=== PATIENT | female | born 1970 | race Caucasian/White ===

== ENCOUNTER 2018-09-07 07:45 | Emergency (ER) | payer MEDICAID, OTHER ==
[2018-09-07] MEDS ORDERED: Sodium Chloride 0.9% 10 ML Syringe FLUSH PRN (08:15)
[2018-09-07] MEDS ORDERED: Sodium Chloride 0.9% 1,000 ML IV STA (08:15)
[2018-09-07] MEDS ORDERED: HYDROmorphone 1 MG/ML Syringe IVPUSH ONE (08:16)
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
--- NOTE | 2018-09-07 10:11 | US ---
Pelvic ultrasound: Multiple real-time images were obtained transvaginally and transabdominally. Comparison: No previous pelvic imaging. Uterus is anteverted. No myometrial abnormality is seen. Endometrial thickness measures up to 1.2 cm which is felt to be within normal limits. Right ovary shows small follicles. No larger cyst or solid abnormality is seen. Left ovary not seen transvaginally. Left ovary identified on transabdominal scanning and is normal in size. No free fluid is seen. Measurements: Uterus: Length 8.1 cm, AP height 5.2 cm, transverse width 6.9 cm Right ovary: 3.5 x 1.8 x 2.0 cm Left ovary: 3.6 x 2.3 x 2.3 cm Impression: 1. Normal findings as noted above. Diagnostic code #1
--- NOTE | 2018-09-07 12:15 | CR ---
Right wrist: Four views of the right wrist were obtained. Comparison: No prior study. Small calcification off the anterior pisiform bone is seen which is felt to be incidental and old. Joint spaces are preserved. No acute fracture, dislocation or other bony abnormality is seen. Impression: 1. Incidental finding. Nothing acute is seen. Diagnostic code #2
== END 2018-09-07 11:45 | disposition home or self-care (01) ==
LOC: JD.ED 07:45
DX: S63.501A Unspecified sprain of right wrist, initial encounter (principal); N93.8 Other specified abnormal uterine and vaginal bleeding; Z77.22 Contact with and (suspected) exposure to environmental tobacco smoke (acute) (chronic); Z79.899 Other long term (current) drug therapy; X58.XXXA Exposure to other specified factors, initial encounter
CPT/HCPCS: 36415; 73110; 76830; 80053; 84703; 85025; 96361; 96374; 99284; J1170; J7040

== ENCOUNTER 2018-09-09 08:17 | Emergency (ER) | payer MEDICAID, OTHER ==
--- NOTE | 2018-09-09 09:32 | EDM.PDOC ---
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 She states that up until then, she had regular periods, usually lasting 7 days. She stated that she had been seen at the [place] ED in May and started on norethindrone. She reported that it stopped her bleeding up until 16 days ago, when it restarted. She reported pelvic pain that came and went. She denied recent fever, chills, cough, congestion, or chest pain. She reported occasional shortness of breath and generalized weakness. Workup in the ED included a CBC, CMP, and urine test. A pelvic ultrasound was unremarkable. She received IV fluid and IV Dilaudid. The emergency physician contacted Dr. Tom Marcus, who recommended that the patient's norethindrone be increased to 20 mg per day. She was discharged home with a prescription for 10 tablets of [place], and an appointment to follow-up with Dr. Marcus this coming 09/11/2018, at 15:30. The patient now returns to the ED, stating that her vaginal bleeding has not improved, and that it may have worsened. She states that she is passing clots, going through 20+ pads over the past 2 days. She also reports 2 episodes of emesis this morning. She denies urinary symptoms. No recent fever. The patient does not have a PCP. Pelvic Pain Score (Numeric/FACES): 8 - Related Data Allergies Allergy/AdvReac Type Severity Reaction Status Date / Time No Known Allergies Allergy Verified 09/09/18 08:27 Home Meds: Home Meds Hydrocodone/Acetaminophen [Hydrocodon-Acetaminophen 5-325] 1 - 2 each PO Q6HR PRN #10 tablet 09/07/18 [Rx] Iron 65 mg PO DAILY 09/07/18 [History] Norethindrone [Aygestin] 10 mg PO DAILY 09/07/18 [History] Past Medical History Cardiovascular History: Reports: Hypertension (untreated) Musculoskeletal History: Reports: Fracture (right humerus) Endocrine/Metabolic History: Reports: Hypothyroidism (untreated), Obesity/BMI 30 + - Past Surgical History HEENT Surgical History: Reports: Oral Surgery (wisdom teeth extraction), Tonsillectomy GI Surgical History: Reports: Appendectomy Female Surgical History: Reports: Tubal Ligation Neurological Surgical History: Reports: C-Spine (C4-5 ACDF, C5-5 ACDF, Posterior cervical jose) Musculoskeletal Surgical History: Reports: ORIF (right humerus) Social & Family History - Tobacco Use Smoking Status *Q: Never Smoker - Caffeine Use Caffeine Use: Reports: Coffee - Alcohol Use Alcohol Use History: Yes Alcohol Use Frequency: Rarely - Recreational Drug Use Recreational Drug Use: No - Living Situation & Occupation Living situation: Reports: , with Family (Daughter, her ) Occupation: Unemployed ED ROS GENERAL - Review of Systems Review Of Systems: ROS reveals no pertinent complaints other than HPI. ED EXAM, RENAL/ - Physical Exam Exam: See Below Exam Limited By: No Limitations General Appearance: Alert, WD/WN, No Apparent Distress Eye Exam: Bilateral Eye: EOMI, Normal Inspection Ears: Normal External Exam, Hearing Grossly Normal Nose: Normal Inspection Throat/Mouth: Normal Inspection, Normal Lips, Normal Voice, No Airway Compromise Head: Atraumatic, Normocephalic Neck: Normal Inspection, Full Range of Motion Respiratory/Chest: No Respiratory Distress, Lungs Clear, Normal Breath Sounds, No Accessory Muscle Use Cardiovascular: Normal Peripheral Pulses, Regular Rate, Rhythm, No Gallop, No JVD, No Murmur, No Rub GI/Abdominal: Normal Bowel Sounds, Soft, No Organomegaly, No Distention, No Abnormal Bruit, No Mass, Tender (Lower abdomen only. Nontender elsewhere.), Other (Obese) (Female) Exam: Deferred Back Exam: Normal Inspection, Full Range of Motion, NT Extremities: Normal Inspection, Normal Range of Motion, Normal Capillary Refill , Other (2+ pretibial edema bilaterally) Neurological: Alert, Oriented, Normal Cognition, No Motor/Sensory Deficits Psychiatric: Normal Affect Skin Exam: Warm, Dry, Intact, Normal Color, No Rash Course - Vital Signs Last Recorded V/S: Last Vital Signs Temp 36.6 C 09/09/18 08:24 Pulse 88 09/09/18 08:24 Resp 16 09/09/18 08:24 BP 158/96 H 09/09/18 08:24 Pulse Ox 93 L 09/09/18 08:24 Orthostatic Blood Pressure [ 162/95 Standing] Orthostatic Blood Pressure [ 157/92 Sitting] Orthostatic Blood Pressure [ 152/89 Supine] - Orders/Labs/Meds Orders: Active Orders 24 hr Category Date Time Status Orthostatic Vital Signs [RC] STAT Care 09/09/18 08:39 Active Labs: Laboratory Tests 09/09/18 Range/Units 08:55 WBC 8.79 (3.98-10.04) K/mm3 RBC 3.99 (3.98-5.22) M/mm3 Hgb 10.7 L (11.2-15.7) gm/L Hct 33.8 L (34.1-44.9) % MCV 84.7 (79.4-94.8) fl MCH 26.8 (25.6-32.2) pg MCHC 31.7 L (32.2-35.5) g/dl RDW Std Deviation 53.7 H (36.4-46.3) fL Plt Count 433 H (182-369) K/mm3 MPV 7.7 L (9.4-12.3) fl Neutrophils % (Manual) 67 H (40-60) % Band Neutrophils % 0 (0-10) % Lymphocytes % (Manual) 20 (20-40) % Atypical Lymphs % 0 % Monocytes % (Manual) 11 H (2-10) % Eosinophils % (Manual) 2 (0.7-5.8) % Basophils % (Manual) 0 L (0.1-1.2) Platelet Estimate Adequate Poikilocytosis 1+ slight Anisocytosis 1+ slight RBC Morph Comment Not Reportable - Re-Assessments/Exams Free Text/Narrative Re-Assessment/Exam: 09/09/18 09:26 The patient's H/H has returned at 10.7/33.8, with platelets 433. Her H/H was 11.1/35.2 on 09/07/2018. The patient is not orthostatic. Case discussed with Dr. Tom Marcus at 09:24. He recommended the patient continue to take norethindrone 20 mg daily, then follow-up with him at her previously scheduled appointment this coming 09/11/2018, at 15:30. 09/09/18 09:32 The above was discussed with the patient. I will discharge her home. Departure - Departure Time of Disposition: 09:32 Disposition: Home, Self-Care 01 Condition: Fair Clinical Impression: Dysfunctional uterine bleeding - Discharge Information *PRESCRIPTION DRUG MONITORING PROGRAM REVIEWED*: Not Applicable *COPY OF PRESCRIPTION DRUG MONITORING REPORT IN PATIENT YANIV: Not Applicable Instructions: Dysfunctional Uterine Bleeding Referrals: Tom Marcus MD [Physician] - Forms: ED Department Discharge Additional Instructions: You were seen in the emergency room for continued vaginal bleeding. Workup in the ER included a CBC and positional blood pressure checked. Your hemoglobin/hematocrit were within normal limits, and your blood pressure maintained itself between lying and standing, indicating that you are not intravascularly depleted. Your case was discussed with the MOP MACHINE OPERATOR Dr. Tom Marcus. He recommended that you continue to take the norethindrone 20 mg per day, and then follow-up with him at your previously scheduled appointment this coming 09/11/2018, at 3: 30 PM. If any other problems, please do not hesitate to return to the ER. - My Orders Last 24 Hours: My Active Orders 09/09/18 08:39 Orthostatic Vital Signs [RC] STAT - Assessment/Plan Last 24 Hours: My Active Orders 09/09/18 08:39 Orthostatic Vital Signs [RC] STAT
== END 2018-09-09 09:40 | disposition home or self-care (01) ==
LOC: JD.ED 08:17
DX: N93.8 Other specified abnormal uterine and vaginal bleeding (principal); I10 Essential (primary) hypertension; E66.9 Obesity, unspecified
CPT/HCPCS: 36415; 85007; 85027; 99283; 99284

== ENCOUNTER 2018-09-15 13:20 | Emergency (ER) | payer OTHER ==
[2018-09-15] MEDS ORDERED: Ondansetron 4 MG/2 ML SDV IVPUSH ONE (13:49)
[2018-09-15] MEDS ORDERED: Sodium Chloride 0.9% 10 ML Syringe FLUSH PRN ×2 (13:49→15:00)
[2018-09-15] MEDS ORDERED: Sodium Chloride 0.9% 1,000 ML IV STA (13:49)
[2018-09-15] MEDS ORDERED: HYDROmorphone 1 MG/ML Syringe IVPUSH ONE ×2 (13:51→16:18)
--- NOTE | 2018-09-15 14:34 | EDM.PDOC ---
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 The vaginal bleeding has been an ongoing problems since May. She went to the ER in [place] in May and she was put on some norethindrone daily. Toward the end of July she started bleeding again and she did that for about 16 days strait. She saw me in the ER last week. I did a pelvic US that did not show any problems. Labs looked good and test was negative. I called Dr Marcus the SENIOR FACILITIES MANAGER systems integration manager and he had me increase her norethindrone and see him in follow up. She came back to the ER 2 days later with the same complaint. She then did follow up with Dr Marcus and he did a biopsy. I was able to look at the biopsy results and there was nothing abnormal seen. He made some changes to her medications and she still continues to bleed. She has clots at times. She has lower abdominal pain and pelvic pain. The pain also radiates to her back. She has generalized weakness and she feels lightheaded nieto she stands up. She says the pelvic pain and abdominal pain are worse. Onset: Gradual Duration: Week(s): Location: Reports: Abdomen, Pelvis Quality: Reports: Sharp Severity: Severe Improves with: Reports: None Worsens with: Reports: None Associated Symptoms: Reports: Nausea/Vomiting. Denies: Chest Pain, Cough, Fever /Chills, Headaches, Shortness of Breath Lower Abdominal Pain Score (Numeric/FACES): 10 - Related Data Allergies Allergy/AdvReac Type Severity Reaction Status Date / Time No Known Allergies Allergy Verified 09/15/18 13:24 Home Meds: Home Meds Hydrocodone/Acetaminophen [Hydrocodon-Acetaminophen 5-325] 1 - 2 each PO Q6HR PRN #10 tablet 09/07/18 [Rx] Iron 65 mg PO DAILY 09/07/18 [History] Norethindrone [Aygestin] 10 mg PO DAILY 09/07/18 [History] Past Medical History Cardiovascular History: Reports: Hypertension SENIOR FACILITIES MANAGER History: Reports: Other (See Below) Other SENIOR FACILITIES MANAGER History: endometrial biopsy Musculoskeletal History: Reports: Fracture Endocrine/Metabolic History: Reports: Hypothyroidism, Obesity/BMI 30+ - Past Surgical History HEENT Surgical History: Reports: Oral Surgery, Tonsillectomy GI Surgical History: Reports: Appendectomy Female Surgical History: Reports: Tubal Ligation Neurological Surgical History: Reports: C-Spine Musculoskeletal Surgical History: Reports: ORIF Social & Family History - Tobacco Use Smoking Status *Q: Never Smoker Second Hand Smoke Exposure: Yes - Caffeine Use Caffeine Use: Reports: Coffee - Recreational Drug Use Recreational Drug Use: No - Living Situation & Occupation Living situation: Reports: , with Family (Daughter, her ) Occupation: Unemployed ED ROS GENERAL - Review of Systems Review Of Systems: See Below Constitutional: Reports: No Symptoms HEENT: Reports: No Symptoms Respiratory: Reports: No Symptoms Cardiovascular: Reports: No Symptoms Endocrine: Reports: No Symptoms GI/Abdominal: Reports: Abdominal Pain, Nausea, Vomiting : Reports: Other (pelvic pain) Musculoskeletal: Reports: Back Pain ED EXAM, RENAL/ - Physical Exam Exam: See Below Exam Limited By: No Limitations General Appearance: Alert, No Apparent Distress Ears: Normal External Exam Nose: Normal Inspection Head: Atraumatic, Normocephalic Neck: Normal Inspection Respiratory/Chest: No Respiratory Distress, Lungs Clear, Normal Breath Sounds Cardiovascular: Regular Rate, Rhythm, No Edema, No Murmur GI/Abdominal: Soft, No Organomegaly, Tender (Moderate tenderness to the lower abdomen) Back Exam: Normal Inspection Extremities: Normal Inspection Neurological: Alert, Oriented, No Motor/Sensory Deficits Course - Vital Signs Last Recorded V/S: Last Vital Signs Temp 97.7 F 09/15/18 13:24 Pulse 88 09/15/18 13:24 Resp BP 171/88 H 09/15/18 13:24 Pulse Ox 98 09/15/18 13:24 - Orders/Labs/Meds Orders: Active Orders 24 hr Category Date Time Status Peripheral IV Care [RC] . DIRECTED Care 09/15/18 13:50 Active Sodium Chloride 0.9% [Saline Flush] Med 09/15/18 13:49 Active 10 ml FLUSH ASDIRECTED PRN Sodium Chloride 0.9% [Saline Flush] Med 09/15/18 15:00 Active 10 ml FLUSH ONETIME PRN ED Antiemetic Medication Reflex [OM.PC] Stat Oth 09/15/18 13:50 Ordered Peripheral IV Insertion Adult [OM.PC] Stat Oth 09/15/18 13:49 Ordered Medication Orders Sodium Chloride (Saline Flush) 10 ml FLUSH ASDIRECTED PRN PRN Reason: Keep Vein Open Last Admin: 09/15/18 14:05 Dose: 10 ml Sodium Chloride (Saline Flush) 10 ml FLUSH ONETIME PRN PRN Reason: IV FLUSH Last Admin: 09/15/18 15:31 Dose: 10 ml Labs: Laboratory Tests 09/15/18 09/15/18 Range/Units 13:40 13:40 WBC 7.75 (3.98-10.04) K/mm3 RBC 3.84 L (3.98-5.22) M/mm3 Hgb 10.4 L (11.2-15.7) gm/L Hct 33.1 L (34.1-44.9) % MCV 86.2 (79.4-94.8) fl MCH 27.1 (25.6-32.2) pg MCHC 31.4 L (32.2-35.5) g/dl RDW Std Deviation 54.9 H (36.4-46.3) fL Plt Count 369 (182-369) K/mm3 MPV 8.1 L (9.4-12.3) fl Neut % (Auto) 51.8 (34.0-71.1) % Lymph % (Auto) 26.8 (19.3-51.7) % [place] % (Auto) 11.4 (4.7-12.5) % Eos % (Auto) 8.9 H (0.7-5.8) Baso % (Auto) 0.5 (0.1-1.2) % Neut # (Auto) 4.01 (1.56-6.13) K/mm3 Lymph # (Auto) 2.08 (1.18-3.74) K/mm3 [place] # (Auto) 0.88 H (0.24-0.36) K/mm3 Eos # (Auto) 0.69 H (0.04-0.36) K/mm3 Baso # (Auto) 0.04 (0.01-0.08) K/mm3 Sodium 136 (136-145) mEq/L Potassium 3.4 L (3.5-5.1) mEq/L Chloride 102 (98-107) mEq/L Carbon Dioxide 25 (21-32) mEq/L Anion Gap 12.4 (5-15) BUN 10 (7-18) mg/dL Creatinine 1.0 (0.55-1.02) mg/dL Est Cr Clr Drug Dosing 66.90 mL/min Estimated GFR (MDRD) 59 (>60) mL/min BUN/Creatinine Ratio 10.0 L (14-18) Glucose 246 H (74-106) mg/dL Calcium 8.7 (8.5-10.1) mg/dL Total Bilirubin 0.4 (0.2-1.0) mg/dL AST 11 L (15-37) U/L ALT 17 (14-59) U/L Alkaline Phosphatase 82 (46-116) U/L Total Protein 7.3 (6.4-8.2) g/dl Albumin 3.3 L (3.4-5.0) g/dl Globulin 4.0 gm/dL Albumin/Globulin Ratio 0.8 L (1-2) Meds: Medications Generic Name Dose Route Start Last Admin Trade Name Christianne PRN Reason Stop Dose Admin Sodium Chloride 10 ml 09/15/18 13:49 09/15/18 14:05 Saline Flush FLUSH 10 ml ASDIRECTED PRN Administration Keep Vein Open Sodium Chloride 10 ml 09/15/18 15:00 09/15/18 15:31 Saline Flush FLUSH 10 ml ONETIME PRN Administration IV FLUSH Discontinued Medications Generic Name Dose Route Start Last Admin Trade Name Freq PRN Reason Stop Dose Admin Diatrizoate Meglum/Diatrizoate Sod 120 ml 09/15/18 15:00 09/15/18 15:31 Gastrografin 37% PO 09/15/18 15:01 90 ml ONETIME ONE Administration Hydromorphone HCl 1 mg 09/15/18 13:51 09/15/18 14:03 Dilaudid IVPUSH 09/15/18 13:52 1 mg ONETIME ONE Administration Hydromorphone HCl 0.5 mg 09/15/18 16:18 09/15/18 16:21 Dilaudid IVPUSH 09/15/18 16:19 0.5 mg ONETIME ONE Administration Sodium Chloride 1,000 mls @ 1,000 mls/hr 09/15/18 13:49 09/15/18 14:01 Normal Saline IV 09/15/18 14:48 1,000 mls/hr .BOLUS STA Administration Iopamidol 100 ml 09/15/18 15:00 09/15/18 15:31 Isovue-370 (76%) IV 09/15/18 15:01 100 ml ONETIME ONE Administration Ketorolac Tromethamine 30 mg 09/15/18 15:55 09/15/18 16:01 Toradol IVPUSH 09/15/18 15:56 30 mg ONETIME ONE Administration Ondansetron HCl 4 mg 09/15/18 13:49 09/15/18 14:02 Zofran IVPUSH 09/15/18 13:50 4 mg ONETIME ONE Administration - Re-Assessments/Exams Free Text/Narrative Re-Assessment/Exam: 09/15/18 14:41 I ordered an IV NS 1L bolus, zofran 4mg IV, dilaudid 1mg IV, labs, and a CT of her abdomen and pelvis. 09/15/18 17:36 Her Hgb is a little low at 10.4. She was 10.7 a few days ago. Her K was a little low at 3.3. Her glucose was elevated at 246. Her CT shows nothing acute. She still has pain so I tried toradol but that did not help and then I gave dilaudid. That did help. She is tired of this and would like something done. Dr Marcus did talk about options such as hysterectomy but he needed the biopsy first. That is back in [facility] and that looked good. I called Dr Rodríguez and she came to see the patient. She reassured her that she is on the right medications. The patient remembered what she is on exactly and that at this point there is not an indication to do a D & C or hysterectomy but that a hysterectomy may be done later as an outpatient. The patient has an appointment on Monday with her primary care doctor and then on Monday with Dr Marcus. I will discharge her home. Departure - Departure Time of Disposition: 17:45 Disposition: Home, Self-Care 01 Condition: Good Clinical Impression: DUB (dysfunctional uterine bleeding) - Discharge Information *PRESCRIPTION DRUG MONITORING PROGRAM REVIEWED*: Not Applicable *COPY OF PRESCRIPTION DRUG MONITORING REPORT IN PATIENT YANIV: Not Applicable Referrals: PCP,Unknown [Primary Care Provider] - Tom Marcus MD [Physician] - 1 Week Forms: ED Department Discharge Additional Instructions: Take the medication as prescribed. Drink plenty of fluids. Take ibuprofen for the pain every 6 hours. Follow up with your doctor and Dr Marcus. Please return if you are worse. - My Orders Last 24 Hours: My Active Orders 09/15/18 13:49 Sodium Chloride 0.9% [Saline Flush] 10 ml FLUSH ASDIRECTED PRN Peripheral IV Insertion Adult [OM.PC] Stat 09/15/18 13:50 Peripheral IV Care [RC] . DIRECTED ED Antiemetic Medication Reflex [OM.PC] Stat 09/15/18 15:00 Sodium Chloride 0.9% [Saline Flush] 10 ml FLUSH ONETIME PRN - Assessment/Plan Last 24 Hours: My Active Orders 09/15/18 13:49 Sodium Chloride 0.9% [Saline Flush] 10 ml FLUSH ASDIRECTED PRN Peripheral IV Insertion Adult [OM.PC] Stat 09/15/18 13:50 Peripheral IV Care [RC] . DIRECTED ED Antiemetic Medication Reflex [OM.PC] Stat 09/15/18 15:00 Sodium Chloride 0.9% [Saline Flush] 10 ml FLUSH ONETIME PRN
[2018-09-15] MEDS ORDERED: Diatrizoate Meglumine/Diatrizoate Sodium 37% 120 ML Bottle PO ONE (15:00)
[2018-09-15] MEDS ORDERED: Iopamidol 755 Mg/ML 200 ML Bottle IV ONE (15:00)
[2018-09-15] MEDS ORDERED: Ketorolac 30 MG/ML SDV IVPUSH ONE (15:55)
--- NOTE | 2018-09-15 15:56 | CT ---
CT abdomen and pelvis Technique: Multiple axial sections were obtained from above the dome of the diaphragm inferiorly through the pubic symphysis. Intravenous and oral contrast was utilized. Delayed images were obtained through the bladder. Comparison: Prior pelvic ultrasound study of 09/07/18 is available. Findings: Small portion of the visualized lung bases show nothing acute. Liver contains no focal abnormality. Gallbladder contains no calcified gallstones. Spleen measures at the upper limits of normal at 13.0 cm. Left adrenal gland shows a nodule measuring about 1.5 cm in size. This is nonspecific but most likely is due to a small adrenal adenoma. Kidneys show symmetric contrast enhancement. Small cyst is noted within the mid to lower right kidney measuring approximately 8 mm in size. Kidneys otherwise appear within normal limits. Aorta shows atherosclerotic calcification without aneurysm. Atherosclerotic calcification continues into the iliac vessels. No retroperitoneal adenopathy is seen. No mesenteric abnormalities are seen. Surgical material is seen next to the cecum most likely representing previous appendectomy as the appendix is not visualized. No bowel wall thickening is seen. No inflammatory change or free fluid is seen. Delayed images shows contrast within the distal ureters and bladder. Bone window settings were reviewed which appears within normal limits for the patient's age. Impression: 1. Findings which are felt to be incidental. Nothing acute is appreciated on CT study of the abdomen and pelvis. Diagnostic code #2
--- NOTE | 2018-09-15 17:24 | PCM.CONS ---
H&P History of Present Illness - General Date of Service: 09/15/18 Source of Information: Patient History Limitations: Reports: No Limitations - History of Present Illness Initial Comments - Free Text/Narative: 48 year old female who presents via ambulance with continued menorrhagia. She repots that she has had very heavy bleeding since May of 2018. She was seen in the ER in [place] around that time and started on OCPs and then northindrone for this. She felt the bleeding improved somewhat with that but she still has had times with very heavy bleeding. She then presented last week for menorrhagia to the ER and her northindrone was increased. On Monday she saw Dr. Marcus in clinic and had an endometrial biopsy. She was changed to 10 bid of Provera at that time. These results are back today and are benign. She called with continued bleeding and her provera was increased to 20 bid of Provera. Today she got a bit tired of the bleeding and was having increased cramping with it and felt she had a fever so presented via ambulance for evaluation. ER eval has been benign. She is afebrile. 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 (See Below) Other OB/BYN History: endometrial biopsy Musculoskeletal History: Reports: Fracture Endocrine/Metabolic History: Reports: Hypothyroidism, Obesity/BMI 30+ - Past Surgical History HEENT Surgical History: Reports: Oral Surgery, Tonsillectomy GI Surgical History: Reports: Appendectomy Female Surgical History: Reports: Tubal Ligation Neurological Surgical History: Reports: C-Spine Musculoskeletal Surgical History: Reports: ORIF Social & Family History - Tobacco Use Smoking Status *Q: Never Smoker Second Hand Smoke Exposure: Yes - Caffeine Use Caffeine Use: Reports: Coffee - Recreational Drug Use Recreational Drug Use: No - Living Situation & Occupation Living situation: Reports: , with Family (Daughter, her ) Occupation: Unemployed H&P Review of Systems - Review of Systems: Review Of Systems: See Below General: Reports: No Symptoms HEENT: Reports: No Symptoms Pulmonary: Reports: No Symptoms Cardiovascular: Reports: No Symptoms Gastrointestinal: Reports: No Symptoms Genitourinary: Reports: Other (see hpi) Musculoskeletal: Reports: No Symptoms Skin: Reports: No Symptoms Psychiatric: Reports: No Symptoms Neurological: Reports: No Symptoms Hematologic/Lymphatic: Reports: No Symptoms Immunologic: Reports: No Symptoms Exam - Exam Exam: See Below - Vital Signs Vital Signs: Last Vital Signs Temp 36.5 C 09/15/18 13:24 Pulse 88 09/15/18 13:24 Resp BP 171/88 H 09/15/18 13:24 Pulse Ox 98 09/15/18 13:24 Weight: 99.79 kg - Exam General: Alert, Oriented, 4 HEENT: PERRLA, Hearing Intact, Mucosa Moist & [place], Nares Patent, Normal Nasal Septum, Posterior Pharynx Clear, Conjunctiva Clear, EOMI, EACs Clear, TMs Clear Neck: Supple, Trachea Midline, 2 Lungs: Clear to Auscultation, Normal Respiratory Effort Cardiovascular: Regular Rate, Regular Rhythm GI/Abdominal Exam: Normal Bowel Sounds, Soft, Non-Tender, No Organomegaly, No Distention, Other (obese) (Female) Exam: Normal External Exam, Vaginal Bleeding (actually fairly minimal, scant blood on pad, few small clots) Rectal (Female) Exam: Normal Exam, Normal Rectal Tone Back Exam: Normal Inspection, Full Range of Motion, NT Extremities: Normal Inspection, Normal Range of Motion, Non-Tender, No Pedal Edema, Normal Capillary Refill Skin: Warm, Dry, Intact Neurological: Cranial Nerves Intact, Reflexes Equal Bilateral Neuro Extensive - Mental Status: Alert, Oriented x3, Normal Mood/Affect, Normal Cognition Neuro Extensive - Motor, Sensory, Reflexes: CN II-XII Intact, Normal Gait, Normal Reflexes Psychiatric: Alert, Normal Affect, Normal Mood - Patient Data Lab Results Last 24 hrs: Laboratory Results - last 24 hr 09/15/18 09/15/18 Range/Units 13:40 13:40 WBC 7.75 (3.98-10.04) K/mm3 RBC 3.84 L (3.98-5.22) M/mm3 Hgb 10.4 L (11.2-15.7) gm/L Hct 33.1 L (34.1-44.9) % MCV 86.2 (79.4-94.8) fl MCH 27.1 (25.6-32.2) pg MCHC 31.4 L (32.2-35.5) g/dl RDW Std Deviation 54.9 H (36.4-46.3) fL Plt Count 369 (182-369) K/mm3 MPV 8.1 L (9.4-12.3) fl Neut % (Auto) 51.8 (34.0-71.1) % Lymph % (Auto) 26.8 (19.3-51.7) % [place] % (Auto) 11.4 (4.7-12.5) % Eos % (Auto) 8.9 H (0.7-5.8) Baso % (Auto) 0.5 (0.1-1.2) % Neut # (Auto) 4.01 (1.56-6.13) K/mm3 Lymph # (Auto) 2.08 (1.18-3.74) K/mm3 [place] # (Auto) 0.88 H (0.24-0.36) K/mm3 Eos # (Auto) 0.69 H (0.04-0.36) K/mm3 Baso # (Auto) 0.04 (0.01-0.08) K/mm3 Sodium 136 (136-145) mEq/L Potassium 3.4 L (3.5-5.1) mEq/L Chloride 102 (98-107) mEq/L Carbon Dioxide 25 (21-32) mEq/L Anion Gap 12.4 (5-15) BUN 10 (7-18) mg/dL Creatinine 1.0 (0.55-1.02) mg/dL Est Cr Clr Drug Dosing 66.90 mL/min Estimated GFR (MDRD) 59 (>60) mL/min BUN/Creatinine Ratio 10.0 L (14-18) Glucose 246 H (74-106) mg/dL Calcium 8.7 (8.5-10.1) mg/dL Total Bilirubin 0.4 (0.2-1.0) mg/dL AST 11 L (15-37) U/L ALT 17 (14-59) U/L Alkaline Phosphatase 82 (46-116) U/L Total Protein 7.3 (6.4-8.2) g/dl Albumin 3.3 L (3.4-5.0) g/dl Globulin 4.0 gm/dL Albumin/Globulin Ratio 0.8 L (1-2) Result Diagrams: 09/15/18 13:40 09/15/18 13:40 Consult PN Assessment/Plan Procedures: Procedures BL SMEAR W/DIFF WBC COUNT (09/09/18) CHORIONIC GONADOTROPIN ASSAY (09/07/18) COMPLETE CBC AUTOMATED (09/09/18) COMPLETE CBC W/AUTO DIFF WBC (09/07/18) COMPREHEN METABOLIC PANEL (09/07/18) EMERGENCY DEPT VISIT (09/09/18) HYDRATE IV INFUSION ADD-ON (09/07/18) ROUTINE VENIPUNCTURE (09/09/18) THER/PROPH/DIAG INJ IV PUSH (09/07/18) TRANSVAGINAL US NON-OB (09/07/18) X-RAY EXAM OF WRIST (09/07/18) Problem List Initiated/Reviewed/Updated: Yes Plan: 48 year old female with dysfunctional perimenopausal bleeding that subjectively has not improved. Objectively on exam bleeding is reasonable with her pad not saturated in the time she has been here and her Hgb has stayed stable. She has followup with her PCP on Monday and Dr Marcus on Monday. Will continue medication.
== END 2018-09-15 18:04 | disposition home or self-care (01) ==
LOC: JD.ED 13:20
DX: N93.8 Other specified abnormal uterine and vaginal bleeding (principal); I10 Essential (primary) hypertension; Z77.22 Contact with and (suspected) exposure to environmental tobacco smoke (acute) (chronic)
CPT/HCPCS: 36415; 74177; 80053; 85025; 96361; 96374; 96375; 96376; 99284; J1170; J1885; J2405; J7040; Q9963; Q9967

== ENCOUNTER 2018-09-20 05:48 | Emergency (ER) | payer MEDICAID ==
[2018-09-20] MEDS ORDERED: Sodium Chloride 0.9% 1,000 ML IV STA (06:11)
[2018-09-20] MEDS ORDERED: Sodium Chloride 0.9% 10 ML Syringe FLUSH PRN (06:11)
--- NOTE | 2018-09-20 06:30 | EDM.PDOC ---
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 This has been an ongoing problem since May. She was seen then in [place] [facility] and put on norefendrine. She did get a little better. She did not follow up with any VENEER GLUE SPREADER. Her bleeding increased and also her pain toward the end of July. She was seen her a few weeks ago by myself and she had an US that looked good and labs. I set her up to follow up with Dr Marcus. She did see him and he did a biopsy. She came back to the ER [address] Marcus saw her again after the biopsy and they decided to do a hysterectomy. She was scheduled for September 27 but they move her up to tomorrow. She also saw her primary care provider for a preop. She is back here again because this morning she woke up with and passed a big clot and had more bleeding and pain. She also has weakness. She has no fever, chills, cough or chest pain. She does have some shortness of breath. Onset: Gradual Duration: Week(s): Location: Reports: Pelvis Quality: Reports: Sharp Severity: Moderate Improves with: Reports: None Worsens with: Reports: None Associated Symptoms: Reports: Shortness of Breath. 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 GLUE SPREADER History: Reports: Dysfunctional Uterine Bleeding, Other (See Below) Other VENEER GLUE SPREADER History: endometrial biopsy Musculoskeletal History: Reports: Fracture Endocrine/Metabolic History: Reports: Diabetes, Type II, Hypothyroidism, Obesity /BMI 30+ - Past Surgical History HEENT Surgical History: Reports: Oral Surgery, Tonsillectomy GI Surgical History: Reports: Appendectomy Female Surgical History: Reports: Tubal Ligation Neurological Surgical History: Reports: C-Spine Musculoskeletal Surgical History: Reports: ORIF Social & Family History - Tobacco Use Smoking Status *Q: Never Smoker - Caffeine Use Caffeine Use: Reports: None - Recreational Drug Use Recreational Drug Use: No - Living Situation & Occupation Living situation: Reports: , with Family (Daughter, her ) Occupation: Unemployed ED ROS GENERAL - Review of Systems Review Of Systems: See Below Constitutional: Reports: No Symptoms HEENT: Reports: No Symptoms Respiratory: Reports: No Symptoms Cardiovascular: Reports: No Symptoms Endocrine: Reports: No Symptoms GI/Abdominal: Reports: Abdominal Pain. Denies: Nausea, Vomiting : Reports: Other (Pelvic pain) Musculoskeletal: Reports: Back Pain (Low back pain) ED EXAM, RENAL/ - Physical Exam Exam: See Below Exam Limited By: No Limitations General Appearance: Alert, No Apparent Distress Ears: Normal External Exam Nose: Normal Inspection Head: Atraumatic, Normocephalic Neck: Normal Inspection Respiratory/Chest: No Respiratory Distress, Lungs Clear, Normal Breath Sounds Cardiovascular: Regular Rate, Rhythm, No Edema, No Murmur GI/Abdominal: Soft, No Organomegaly, No Mass, Tender (Mild tenderness to the lower abdomen) Back Exam: Other (Mild pain upon palpation to the lower back) Course - Vital Signs Last Recorded V/S: Last Vital Signs Temp 98.3 F 09/20/18 05:53 Pulse 89 09/20/18 05:53 Resp 18 09/20/18 05:53 BP 163/114 H 09/20/18 05:53 Pulse Ox 96 09/20/18 05:53 - Orders/Labs/Meds Orders: Active Orders 24 hr Category Date Time Status EKG Documentation Completion [RC] STAT Care 09/20/18 06:11 Active Peripheral IV Care [RC] . DIRECTED Care 09/20/18 06:12 Active Chest 1V Frontal [CR] Stat Exams 09/20/18 06:11 Taken Sodium Chloride 0.9% [Normal Saline] 1,000 ml Med 09/20/18 06:11 Active IV .BOLUS Sodium Chloride 0.9% [Saline Flush] Med 09/20/18 06:11 Active 10 ml FLUSH ASDIRECTED PRN Peripheral IV Insertion Adult [OM.PC] Stat Oth 09/20/18 06:11 Ordered Medication Orders Sodium Chloride (Normal Saline) 1,000 mls @ 1,000 mls/hr IV .BOLUS STA Stop: 09/20/18 07:10 Last Admin: 09/20/18 06:18 Dose: 1,000 mls/hr Sodium Chloride (Saline Flush) 10 ml FLUSH ASDIRECTED PRN PRN Reason: Keep Vein Open Last Admin: 09/20/18 06:18 Dose: 10 ml Labs: Laboratory Tests 09/20/18 09/20/18 09/20/18 Range/Units 06:00 06:00 06:00 WBC 8.11 (3.98-10.04) K/mm3 RBC 3.85 L (3.98-5.22) M/mm3 Hgb 10.2 L (11.2-15.7) gm/L Hct 32.6 L (34.1-44.9) % MCV 84.7 (79.4-94.8) fl MCH 26.5 (25.6-32.2) pg MCHC 31.3 L (32.2-35.5) g/dl RDW Std Deviation 48.9 H (36.4-46.3) fL Plt Count 428 H (182-369) K/mm3 MPV 7.8 L (9.4-12.3) fl Neut % (Auto) 59.0 (34.0-71.1) % Lymph % (Auto) 22.3 (19.3-51.7) % Wharton % (Auto) 12.0 (4.7-12.5) % Eos % (Auto) 5.8 (0.7-5.8) Baso % (Auto) 0.5 (0.1-1.2) % Neut # (Auto) 4.79 (1.56-6.13) K/mm3 Lymph # (Auto) 1.81 (1.18-3.74) K/mm3 Wharton # (Auto) 0.97 H (0.24-0.36) K/mm3 Eos # (Auto) 0.47 H (0.04-0.36) K/mm3 Baso # (Auto) 0.04 (0.01-0.08) K/mm3 Sodium 136 (136-145) mEq/L Potassium 3.9 (3.5-5.1) mEq/L Chloride 101 (98-107) mEq/L Carbon Dioxide 25 (21-32) mEq/L Anion Gap 13.9 (5-15) BUN 11 (7-18) mg/dL Creatinine 0.8 (0.55-1.02) mg/dL Est Cr Clr Drug Dosing 83.63 mL/min Estimated GFR (MDRD) > 60 (>60) mL/min BUN/Creatinine Ratio 13.8 L (14-18) Glucose 189 H (74-106) mg/dL POC Glucose 207 H (70-105) mg/dL Calcium 8.8 (8.5-10.1) mg/dL Total Bilirubin 0.4 (0.2-1.0) mg/dL AST 12 L (15-37) U/L ALT 19 (14-59) U/L Alkaline Phosphatase 74 (46-116) U/L Troponin I < 0.017 (0.00-0.056) ng/mL Total Protein 7.2 (6.4-8.2) g/dl Albumin 3.2 L (3.4-5.0) g/dl Globulin 4.0 gm/dL Albumin/Globulin Ratio 0.8 L (1-2) Meds: Medications Generic Name Dose Route Start Last Admin Trade Name Freq PRN Reason Stop Dose Admin Sodium Chloride 1,000 mls @ 1,000 mls/hr 09/20/18 06:11 09/20/18 06:18 Normal Saline IV 09/20/18 07:10 1,000 mls/hr .BOLUS STA Administration Sodium Chloride 10 ml 09/20/18 06:11 09/20/18 06:18 Saline Flush FLUSH 10 ml ASDIRECTED PRN Administration Keep Vein Open - Re-Assessments/Exams Free Text/Narrative Re-Assessment/Exam: 09/20/18 06:31 I ordered an IV NS 1L bolus, dilaudid 0.5mg IV, labs, EKG, and CXR. 09/20/18 07:05 Her EKG shows a NSR with some flattened T waves in the lateral leads. Her CXR looks good. Her WBC is normal. Her Hgb has gone up to 10.2. Her glucose is 189. Her troponin is negative. She was seen by Miguelina in our clinic and her TSH was at 20. She did not start her levothyroxine. I will give her a dose today. I will give her something more for the pain and discharge her home. She has surgery scheduled for tomorrow. Departure - Departure Time of Disposition: 07:10 Disposition: Home, Self-Care 01 Condition: Good Clinical Impression: DUB (dysfunctional uterine bleeding) - Discharge Information *PRESCRIPTION DRUG MONITORING PROGRAM REVIEWED*: No *COPY OF PRESCRIPTION DRUG MONITORING REPORT IN PATIENT YANIV: No Forms: ED Department Discharge Additional Instructions: Take your medications as prescribed. Please return in the morning for surgery. - My Orders Last 24 Hours: My Active Orders 09/20/18 06:11 EKG Documentation Completion [RC] STAT Chest 1V Frontal [CR] Stat Sodium Chloride 0.9% [Normal Saline] 1,000 ml IV .BOLUS Sodium Chloride 0.9% [Saline Flush] 10 ml FLUSH ASDIRECTED PRN Peripheral IV Insertion Adult [OM.PC] Stat 09/20/18 06:12 Peripheral IV Care [RC] . DIRECTED - Assessment/Plan Last 24 Hours: My Active Orders 09/20/18 06:11 EKG Documentation Completion [RC] STAT Chest 1V Frontal [CR] Stat Sodium Chloride 0.9% [Normal Saline] 1,000 ml IV .BOLUS Sodium Chloride 0.9% [Saline Flush] 10 ml FLUSH ASDIRECTED PRN Peripheral IV Insertion Adult [OM.PC] Stat 09/20/18 06:12 Peripheral IV Care [RC] . DIRECTED
[2018-09-20] MEDS ORDERED: Levothyroxine 50 MCG Tab PO ONE (07:08)
[2018-09-20] MEDS ORDERED: HYDROmorphone 1 MG/ML Syringe IVPUSH ONE (07:08)
--- NOTE | 2018-09-20 07:42 | CR ---
Chest: Portable view of the chest was obtained. Comparison: No prior chest x-ray. Heart size is within normal limits for portable technique. Slight tortuosity of the thoracic aorta is seen. Lungs are clear. Bony structures are grossly intact. Impression: 1. Nothing acute is appreciated on portable chest x-ray. Diagnostic code #2
== END 2018-09-20 07:28 | disposition home or self-care (01) ==
LOC: JD.ED 05:48
DX: N93.8 Other specified abnormal uterine and vaginal bleeding (principal); E11.9 Type 2 diabetes mellitus without complications; I10 Essential (primary) hypertension; E03.9 Hypothyroidism, unspecified; Z79.899 Other long term (current) drug therapy
CPT/HCPCS: 36415; 71045; 80053; 82962; 84484; 85025; 93005; 96361; 96374; 99284; A9270; J1170; J7040; 93010; 99283

== ENCOUNTER 2018-09-21 06:44 | Day surgery (SDC) | payer MEDICAID, OTHER ==
[2018-09-21] MEDS ORDERED: Sodium Chloride 0.9% 10 ML Syringe FLUSH PRN (07:00)
[2018-09-21] MEDS ORDERED: Lactated Ringers 1,000 ML IV SCH (07:00)
[2018-09-21] MEDS ORDERED: Lidocaine 1%/Sod Bicarbonate in NS 8.4% 1 ML Syringe IDERM PRN (07:00)
[2018-09-21] MEDS ORDERED: Propofol 200 MG/20 ML SDV ONE (07:22)
[2018-09-21] MEDS ORDERED: fentaNYL 100 MCG/2 ML SDV ONE ×2 (07:22→10:53)
[2018-09-21] MEDS ORDERED: Lidocaine 1% 4 ML ONE (07:23)
[2018-09-21] MEDS ORDERED: Dexamethasone 4 MG/ML SDV ONE (07:23)
[2018-09-21] MEDS ORDERED: Ondansetron 4 MG/2 ML SDV ONE (07:23)
[2018-09-21] MEDS ORDERED: Rocuronium 50 MG/5 ML Vial ONE ×2 (07:23→10:19)
[2018-09-21] MEDS ORDERED: Ketorolac 30 MG/ML SDV ONE (07:23)
[2018-09-21] MEDS ORDERED: Midazolam 1 MG/ML 2 ML SDV ONE (07:23)
[2018-09-21] MEDS ORDERED: Bupivacaine 0.5% 30 ML SDV ONE (07:35)
[2018-09-21] MEDS ORDERED: Scopolamine 1.5 MG Transdermal Patch TOP ONE (07:36)
--- NOTE | 2018-09-21 07:42 | PCM.PREANE ---
Preanesthetic Assessment - Procedure Proposed Procedure: laparoscopic assisted vaginal hysterectomy bilateral salphingectomy - Anesthesia/Transfusion/Family Hx Anesthesia History: Prior Anesthesia Without Reaction Family History of Anesthesia Reaction: No Transfusion History: Prior Transfusion Without Reaction Intubation History: Unknown - Review of Systems General: Night Sweats Pulmonary: Shortness of Breath (constant ), Other (KAMARI, wakes up and can't breathe, ) Cardiovascular: Edema (lower extremities ) Gastrointestinal: Abdominal Pain, Nausea Neurological: Headache (migraines 1-2) Other: Reports: Easy Bleeding (per patient ), Easy Bruising, Diabetes, Thyroid Problems, Depression, Anxiety - Physical Assessment NPO Status Date: 09/20/18 NPO Status Time: 23:30 Pulse: 88 O2 Sat by Pulse Oximetry: 97 Respiratory Rate: 16 Blood Pressure: 146/87 Temperature: 37.4 C Height: 1.7 m Weight: 115 kg ASA Class: 3 Mental Status: Alert & Oriented x3 Airway Class: Mallampati = 3 Dentition: Reports: Dentures (upper dentures, partial bottom ) Thyro-Mental Finger Breadths: 3 Mouth Opening Finger Breadths: 3 ROM/Head Extension: Limited/Partial (history of neck fusion) Lungs: Clear to Auscultation, Decreased Breath Sounds (lower lobes) Cardiovascular: Regular Rate, Regular Rhythm - Allergies Allergies/Adverse Reactions: Allergies Allergy/AdvReac Type Severity Reaction Status Date / Time Penicillins Allergy Cannot Verified 09/20/18 13:07 Remember - Blood Blood Available: No - Anesthesia Plan Pre-Op Medication Ordered: Other (zofran ) - Acknowledgements Anesthesia Type Planned: General Anesthesia Pt an Appropriate Candidate for the Planned Anesthesia: Yes Alternatives and Risks of Anesthesia Discussed w Pt/Guardian: Yes Pt/Guardian Understands and Agrees with Anesthesia Plan: Yes PreAnesthesia Questionnaire HEENT History: Reports: Other (See Below) Other HEENT History: TMJ, has dentures Cardiovascular History: Reports: Hypertension Respiratory History: Reports: Sleep Apnea, SOB Genitourinary History: Reports: None, Other (See Below) Other Genitourinary History: endometrial biopsy, vaginal pain 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: Dysfunctional Uterine Bleeding, Other (See Below) Other OB/BYN History: endometrial biopsy Musculoskeletal History: Reports: Fracture, Osteoarthritis Neurological History: Reports: Migraines Psychiatric History: Reports: Anxiety, Depression Endocrine/Metabolic History: Reports: Diabetes, Type II, Hypothyroidism, Obesity /BMI 30+ Hematologic History: Reports: Anemia Immunologic History: Reports: None Oncologic (Cancer) History: Reports: None Dermatologic History: Reports: None - Past Surgical History Head Surgeries/Procedures: Reports: None HEENT Surgical History: Reports: Oral Surgery, Tonsillectomy Cardiovascular Surgical History: Reports: None Respiratory Surgical History: Reports: None GI Surgical History: Reports: Appendectomy Female Surgical History: Reports: Tubal Ligation Endocrine Surgical History: Reports: None Neurological Surgical History: Reports: C-Spine Musculoskeletal Surgical History: Reports: ORIF Other Musculoskeletal Surgeries/Procedures:: neck surgery Oncologic Surgical History: Reports: None Dermatological Surgical History: Reports: None - SUBSTANCE USE Smoking Status *Q: Never Smoker Recreational Drug Use History: No - HOME MEDS Home Medications: Home Meds ARIPiprazole [Abilify] 5 mg PO BID 09/20/18 [History] Hydrocodone/Acetaminophen [Hydrocodon-Acetaminophen 5-325] 1 - 2 tab PO Q6H PRN 09/20/18 [History] Lisinopril 10 mg PO DAILY 09/20/18 [History] medroxyPROGESTERone [Provera] 20 mg PO BID 09/20/18 [History] metFORMIN [Glucophage] 500 mg PO DAILY 09/20/18 [History] traZODone HCl [Trazodone HCl] 50 mg PO BEDTIME 09/20/18 [History] - CURRENT (IN HOUSE) MEDS Current Meds: Current Medications Lactated Ringer's (Ringers, Lactated) 1,000 mls @ 125 mls/hr IV ASDIRECTED JACQUES Stop: 09/21/18 23:00 Lidocaine/Sodium Bicarbonate (Buffered Lidocaine 1% In Ns 8.4%) 0.25 ml IDERM ONETIME PRN PRN Reason: Prior to IV Start Stop: 09/21/18 18:00 Sodium Chloride (Saline Flush) 10 ml FLUSH ASDIRECTED PRN PRN Reason: Keep Vein Open Stop: 09/21/18 18:00 Discontinued Medications Dexamethasone (Dexamethasone) Confirm Administered Dose 4 mg .ROUTE .STK-MED ONE Stop: 09/21/18 07:24 Fentanyl (Sublimaze) Confirm Administered Dose 100 mcg .ROUTE .STK-MED ONE Stop: 09/21/18 07:23 Lidocaine HCl (Xylocaine-Mpf 1%) Confirm Administered Dose 4 mls @ as directed .ROUTE .STK-MED ONE Stop: 09/21/18 07:24 Ketorolac Tromethamine (Toradol) Confirm Administered Dose 30 mg .ROUTE .STK- MED ONE Stop: 09/21/18 07:24 Midazolam HCl (Versed 1 Mg/Ml) Confirm Administered Dose 2 mg .ROUTE .[employer]-MED ONE Stop: 09/21/18 07:24 Ondansetron HCl (Zofran) Confirm Administered Dose 4 mg .ROUTE .STK-MED ONE Stop: 09/21/18 07:24 Propofol (Diprivan 20 Ml) Confirm Administered Dose 400 mg .ROUTE .STK-MED ONE Stop: 09/21/18 07:23 Rocuronium [place] (Zemuron) Confirm Administered Dose 50 mg .ROUTE .[employer]ong[employer]-MED ONE Stop: 09/21/18 07:24
[2018-09-21] MEDS ORDERED: Ondansetron 4 MG/2 ML SDV IVPUSH PRN (07:53)
[2018-09-21] MEDS ORDERED: fentaNYL 100 MCG/2 ML SDV IVPUSH PRN (07:53)
[2018-09-21] MEDS ORDERED: ceFAZolin 1 GM Vial ONE (08:28)
[2018-09-21] MEDS ORDERED: HYDROmorphone 0.5 MG/0.5 ML Syringe ONE ×3 (08:36→10:21)
[2018-09-21] MEDS ORDERED: Phenylephrine/Normal Saline 100 MCG/ML 10 ML Syringe ONE ×2 (08:45→09:36)
[2018-09-21] MEDS ORDERED: Lactated Ringers 1,000 ML ONE (08:53)
[2018-09-21] MEDS: Lidocaine 1% with EPINEPHrine 1:100,000 20 ML MDV ONE ×2 (08:53→09:08)
[2018-09-21] MEDS: Sodium Chloride 0.9% 50 ML SDV ONE ×2 (08:54→09:08)
[2018-09-21] MEDS ORDERED: Ketamine 500 mg/10 ML MDV ONE (09:12)
[2018-09-21] MEDS ORDERED: Neostigmine Methylsulfate 1 MG/ML 5 ML Syringe ONE (09:20)
[2018-09-21] MEDS ORDERED: Glycopyrrolate 0.2 MG/ML SDV ONE (09:20)
[2018-09-21] MEDS ORDERED: diphenhydrAMINE 50 MG/ML SDV ONE (10:49)
--- NOTE | 2018-09-21 11:31 | PCM.POSTAN ---
POST ANESTHESIA ASSESSMENT - MENTAL STATUS Mental Status: Somnolent - VITAL SIGNS Pulse Rate: 77 SaO2: 100 Resp Rate: 13 Blood Pressure: 142/79 Temperature: 36.6 C - RESPIRATORY Respiratory Status: Respiratory Rate WNL, Airway Patent, O2 Saturation Stable - CARDIOVASCULAR CV Status: Pulse Rate WNL, Blood Pressure Stable - GASTROINTESTINAL GI Status: No Symptoms - PAIN Pain Score: 0 - POST OP HYDRATION Hydration Status: Adequate & Stable
[2018-09-21] MEDS ORDERED: Bupivacaine 0.75% 30 ML SDV ONE (11:40)
[2018-09-21] MEDS ORDERED: Lidocaine 1% 0 ML ONE (11:40)
--- NOTE | 2018-09-21 11:40 | PCM.OPNOTE ---
- General Post-Op/Procedure Note Date of Surgery/Procedure: 09/21/18 Operative Procedure(s): Laparoscopic-assisted vaginal hysterectomy with left salpingectomy of remaining fimbriated end of the fallopian tube Findings: Large, boggy uterus weighing 255 g. Surgically absent bilateral fallopian tubes however there was a small remaining portion of the fimbriated end of the left fallopian tube on the left ovary that was removed. Gases were overall normal. Ovaries were overall normal bilaterally. Hemostasis was noted at the end of the case. The visualized portions of the liver were normal. Pre Op Diagnosis: Abnormal uterine bleeding and menorrhagia with irregular cycle Post-Op Diagnosis: Same Anesthesia Technique: General ET Tube Primary Surgeon: Tom Marcus Anesthesia Provider: Susan Pham News Production Assistant: Nurys Tovar Reason News Production Assistant Was Necessary: Patient's safety and reduction of morbidity and mortality Role of News Production Assistant: Laparoscopic skills and portion of the case on her side of the body and uterus. Pathology: Uterus, cervix and left fimbriated end of the fallopian tube Fluid Replacement, Intraop: 2,000 Output, Urine Amount: 50 EBL in mLs: 150 Complications: None Condition: Good Free Text/Narrative:: Intake & Output 09/20/18 09/21/18 09/21/18 22:59 06:59 14:59 Output Total 50 Balance -50 Length of procedure: 130 minutes Procedure in detail: The patient was seen in the preoperative holding area and risks, benefits, indications, and alternatives of the procedure were reviewed with the patient and she desired to proceed with a laparoscopic assisted vaginal hysterectomy, bilateral salpingectomy, possible unilateral or bilateral oophorectomy, possible total abdominal hysterectomy. Consents were reviewed. The patient was taken back to the OR and given general anesthesia with an endotracheal tube which was placed without difficulty. She was placed in dorsal lithotomy position using Yellofin stirrups. She was prepped and draped in normal sterile fashion. A Miranda catheter was placed without difficulty. She was given 2 g of Ancef for antibiotic prophylaxis. Attention was then turned to her umbilicus and it was injected in the inferior portion of the umbilicus with 0.5% Marcaine and a 5 mm stab incision was made with a scalpel and a Veress needle was then inserted through the incision. The gas was turned on, with an opening pressure of 8 mmHg. Pneumoperitoneum was continued until 15 mmHg pressure. A 5 mm trocar was then inserted under direct visualization through the incision without difficulty. A global view of the abdomen was taken and noted to be overall normal. There were no adhesions noted. Attention was then turned to the patient's right lower quadrant where an avascular space on the right lateral abdomen was identified. Local anesthetic was injected and a 5 mm incision was made with a scalpel. A 5 mm trocar was then inserted under direct visualization of the laparoscope. Attention was then turned to the left lower quadrant, where again an avascular portion of the lateral abdominal wall was identified. Local anesthetic was injected and a scalpel was used to make a 5 mm incision. A 5 mm trocar was inserted under direct visualization with the laparoscope. Attention was then turned to the pelvis where the uterus was visualized and noted be normal in appearance with normal appearing left ovary and a small portion of the fimbriated end of the left fallopian tube. The right ovary and adnexa were not well visualized at this time. The atraumatic grasper was then removed from the right lower trocar and a Enseal vessel sealing device was introduced and was used to transect the small portion of remaining fimbriated end of the remaining portion of the left fallopian tube. This was removed without difficulty and sent for pathology with the entire specimen. The Enseal vessel sealing device was then used to grasp the left round ligament and utero-ovarian ligament, cauterized and transected using the device. The left side of the uterus and broad ligament were then transected using the Enseal vessel sealing device until the level of the uterovesical peritoneal reflection. A bladder flap was then developed across the anterior portion of the uterus. This was repeated on the patient's right side. The utero-ovarian ligament was then transected using Enseal vessel sealing device. The round ligament was transected using Enseal vessel sealing device and the broad ligament was transected to the level of the uterovesical peritoneal reflection. The pelvis was then inspected for hemostasis at this time and hemostasis was noted. All instruments were removed from the abdomen. Attention was then turned to the patient's peritoneum where a weighted speculum was placed into the vagina and a Addison retractor was used to visualize the cervix. The cervix was grasped with a double-tooth tenaculum. The cervical reflection point was then injected circumferentially with 0.25% lidocaine with epinephrine. The cervix was then circumferentially incised with a scalpel. The bladder was then dissected off the pubovesical cervical fascia anteriorly with Metzenbaum scissors. The same procedure was performed posteriorly and the posterior cul-de-sac was entered sharply without difficulty using Metzenbaum scissors. At this point, Enseal vessel sealing device was placed over the uterosacral ligaments on the patient's left side. These were cauterized and transected using the device. This was repeated on the patient's right side. Hemostasis was assured. The cardinal ligaments were then clamped on both sides using the Enseal vessel sealing device, cauterized and ligated using the device. The uterine artery on the patient's right side side and the remainder of the broad ligament were then serially clamped with the Enseal device, cauterized, transected and ligated with the Enseal device on both sides. Excellent hemostasis was noted. The cervix and uterus was able to be delivered at this time. The posterior vaginal cuff was closed with running locked sutures of 0 Monocryl. The vaginal cuff was then closed in a horizontal fashion using running locked sutures with 0 Monocryl suture. All instruments were removed from the vagina. Attention was then turned to the abdomen where a laparoscope was inserted and was used to check for hemostasis. Hemostasis was noted at this time. However, there was a portion of the posterior peritoneum that was incorporated into the vaginal cuff suture causing a pulling of the distal rectum and it was felt that the vaginal cuff should be redone. Attention was then turned to the peritoneum and again a weighted speculum was placed in the vagina and the previous suture for the cuff closure was transected and removed. The vaginal cuff was then closed in a horizontal fashion using running locked sutures with 0 Monocryl suture. Attention was then turned to the abdomen where the peritoneum was reinflated and laparoscope was inserted to again check for hemostasis and evaluate the area of concern in the posterior peritoneum. This is inspected and noted to be normal in appearance and was not causing any change in the rectum angle for the distal rectum. The case was complete at this time. The gas was then evacuated from the peritoneum and trocars removed. These were closed using 4-0 Monocryl suture and Dermabond. All instruments were removed. The Miranda catheter was discontinued at this time. The patient was awoken from general anesthesia and taken to the PACU for recovery in stable condition. She will be discharged to home once she is able to meet all postoperative milestones including tolerating small amount of oral intake and liquids, ambulate without difficulty, her pain controlled with oral medications and able to void without difficulty. She will follow-up in the clinic in 2 weeks or earlier as needed. Sponge, lap, needle, and instrument counts were correct x 2. Of note the uterus was weighed and had a total weight of 255 g. Review of images IMG 001: General view of the uterus and left ovary with overall normal appearance. No evidence of fallopian tube on the left side of the uterus. IMG 002: View of the right adnexa and superior portions of the uterus that her overall normal in appearance. Unable to visualize ovary. IMG 003: Inferior edge of the liver was overall normal in appearance IMG 004: Right ovary that is normal in appearance with the vaginal cuff with hemostasis noted. IMG 005: Left ovary and left broad ligament surgical site was hemostatic. Small suspected fibroadenoma noted on the ovary. IMG 006: Vaginal cuff noted to be hemostatic at the end of the case.
[2018-09-21] MEDS ORDERED: Acetaminophen/oxyCODONE 325-5 MG Tab PO PRN (12:10)
[2018-09-21] MEDS ORDERED: Ketorolac 30 MG/ML SDV IVPUSH SCH (16:30)
--- NOTE | 2018-09-22 09:22 | PCM48HPAN ---
Post Anesthesia Note - EVALUATION WITHIN 48HRS OF ANESTHETIC Vital Signs in Normal Range: Yes Patient Participated in Evaluation: No (Discharged ) Respiratory Function Stable: Yes Airway Patent: Yes Cardiovascular Function Stable: Yes Hydration Status Stable: Yes Pain Control Satisfactory: Yes Nausea and Vomiting Control Satisfactory: Yes Mental Status Recovered: Yes - COMMENTS/OBSERVATIONS Free Text/Narrative:: Chart reviewed, no anesthetic complications noted.
== END 2018-09-21 17:40 | disposition home or self-care (01) ==
LOC: JD.SDS 06:44 → JD.OB 13:40 → JD.SDS 17:40
PROVIDERS: ATTEND Obstetrics & Gynecology
DX: N80.0 Endometriosis of uterus (principal); N72 Inflammatory disease of cervix uteri; I10 Essential (primary) hypertension; E11.9 Type 2 diabetes mellitus without complications; E03.9 Hypothyroidism, unspecified; F41.9 Anxiety disorder, unspecified; F32.9 Major depressive disorder, single episode, unspecified; D64.9 Anemia, unspecified; G47.30 Sleep apnea, unspecified; G43.909 Migraine, unspecified, not intractable, without status migrainosus; Z88.0 Allergy status to penicillin; Z79.84 Long term (current) use of oral hypoglycemic drugs; Z79.899 Other long term (current) drug therapy
CPT/HCPCS: 36415; 58552; 81001; 81025; 82962; 86850; 86900; 86901; A9270; J0690; J1100; J1170; J1200; J1885; J2001; J2250; J2370; J2405; J2704; J2710; J3010; J3490; J7120; 00944

== ENCOUNTER 2019-03-28 06:35 | Emergency (ER) | payer MEDICAID ==
[2019-03-28] MEDS ORDERED: Sodium Chloride 0.9% 10 ML Syringe FLUSH PRN (06:56)
[2019-03-28] MEDS ORDERED: Prochlorperazine 10 MG/2 ML SDV IVPUSH ONE (06:56)
[2019-03-28] MEDS ORDERED: diphenhydrAMINE 50 MG/ML SDV IVPUSH ONE (06:57)
[2019-03-28] MEDS ORDERED: Ketorolac 30 MG/ML SDV IVPUSH ONE (06:57)
--- NOTE | 2019-03-28 07:01 | EDM.PDOC ---
ED HPI GENERAL MEDICAL PROBLEM - General Chief Complaint: Headache Stated Complaint: MIGRAINE Time Seen by Provider: 03/28/19 06:51 Source of Information: Reports: Patient History Limitations: Reports: No Limitations - History of Present Illness INITIAL COMMENTS - FREE TEXT/NARRATIVE: The patient presents with a migraine headache since yesterday. She has nausea but no vomiting. She says it has "messed up her vision." She has a history of migraines. She has no numbness or weakness. She has no fever, chills, cough, chest pain or shortness of breath. Onset: Gradual Duration: Day(s): (Yesterday) Location: Reports: Head Quality: Reports: Sharp Severity: Severe Improves with: Reports: None Worsens with: Reports: None Associated Symptoms: Reports: Headaches, Nausea/Vomiting. Denies: Chest Pain, Cough, Fever/Chills, Shortness of Breath Bilateral Headache Pain Score (Numeric/FACES): 10 - Related Data Allergies Allergy/AdvReac Type Severity Reaction Status Date / Time Penicillins Allergy Cannot Verified 03/28/19 06:44 Remember Home Meds: Home Meds ARIPiprazole [Abilify] 5 mg PO BID 09/20/18 [History] Lisinopril 10 mg PO DAILY 09/20/18 [History] metFORMIN [Glucophage] 500 mg PO DAILY 09/20/18 [History] traZODone HCl [Trazodone HCl] 50 mg PO BEDTIME 09/20/18 [History] Docusate Sodium [Colace] 100 mg PO BID #60 capsule 09/21/18 [Rx] Ibuprofen 600 mg PO Q6H PRN #60 tablet 09/21/18 [Rx] Levothyroxine [Synthroid] 50 mcg PO DAILY 09/21/18 [History] Ondansetron [Zofran ODT] 4 mg PO Q4H PRN #30 tab.dis 09/21/18 [Rx] oxyCODONE HCl/Acetaminophen [Percocet 5-325 mg Tablet] 1 - 2 each PO Q6H PRN # 30 tablet 09/21/18 [Rx] Past Medical History HEENT History: Reports: Other (See Below) Other HEENT History: TMJ, has dentures Cardiovascular History: Reports: Hypertension Respiratory History: Reports: Sleep Apnea, SOB Genitourinary History: Reports: None, Other (See Below) Other Genitourinary History: endometrial biopsy, vaginal pain KENO WRITER History: Reports: Dysfunctional Uterine Bleeding, Other (See Below) Other KENO WRITER History: endometrial biopsy Musculoskeletal History: Reports: Fracture Neurological History: Reports: Migraines Psychiatric History: Reports: Anxiety, Depression Endocrine/Metabolic History: Reports: Diabetes, Type II, Hypothyroidism, Obesity /BMI 30+ Hematologic History: Reports: Anemia Immunologic History: Reports: None Oncologic (Cancer) History: Reports: None Dermatologic History: Reports: None - Past Surgical History Head Surgeries/Procedures: Reports: None HEENT Surgical History: Reports: Oral Surgery, Tonsillectomy Cardiovascular Surgical History: Reports: None Respiratory Surgical History: Reports: None GI Surgical History: Reports: Appendectomy Female Surgical History: Reports: Hysterectomy, Tubal Ligation Endocrine Surgical History: Reports: None Neurological Surgical History: Reports: C-Spine Oncologic Surgical History: Reports: None Dermatological Surgical History: Reports: None Social & Family History - Tobacco Use Smoking Status *Q: Never Smoker - Caffeine Use Caffeine Use: Reports: None - Recreational Drug Use Recreational Drug Use: No - Living Situation & Occupation Living situation: Reports: , with Family (Daughter, her ) Occupation: Unemployed ED ROS GENERAL - Review of Systems Review Of Systems: See Below Constitutional: Reports: No Symptoms HEENT: Reports: No Symptoms Respiratory: Reports: No Symptoms Cardiovascular: Reports: No Symptoms Endocrine: Reports: No Symptoms GI/Abdominal: Reports: Nausea. Denies: Abdominal Pain, Vomiting : Reports: No Symptoms Musculoskeletal: Reports: No Symptoms Neurological: Reports: Headache - Physical Exam Exam: See Below Exam Limited By: No Limitations General Appearance: Alert, No Apparent Distress Ears: Normal External Exam Nose: Normal Inspection Head Exam: Atraumatic, Normocephalic Neck: Normal Inspection Respiratory/Chest: No Respiratory Distress, Lungs Clear, Normal Breath Sounds Cardiovascular: Regular Rate, Rhythm, No Edema, No Murmur GI/Abdominal: Soft, Non-Tender, No Organomegaly, No Mass Neuro Exam (Abbreviated): Alert, Oriented, No Motor/Sensory Deficits Course - Vital Signs Last Recorded V/S: Last Vital Signs Temp 98.2 F 03/28/19 06:44 Pulse 113 H 03/28/19 06:44 Resp 17 03/28/19 06:44 BP 154/92 H 03/28/19 06:44 Pulse Ox 94 L 03/28/19 06:44 - Orders/Labs/Meds Orders: Active Orders 24 hr Category Date Time Status Peripheral IV Care [RC] . DIRECTED Care 03/28/19 06:56 Active Sodium Chloride 0.9% [Saline Flush] Med 03/28/19 06:56 Active 10 ml FLUSH ASDIRECTED PRN Peripheral IV Insertion Adult [OM.PC] Routine Oth 03/28/19 06:56 Ordered Medication Orders Sodium Chloride (Saline Flush) 10 ml FLUSH ASDIRECTED PRN PRN Reason: Keep Vein Open Last Admin: 03/28/19 07:15 Dose: 10 ml Meds: Medications Generic Name Dose Route Start Last Admin Trade Name Freq PRN Reason Stop Dose Admin Sodium Chloride 10 ml 03/28/19 06:56 03/28/19 07:15 Saline Flush FLUSH 10 ml ASDIRECTED PRN Administration Keep Vein Open Discontinued Medications Generic Name Dose Route Start Last Admin Trade Name Freq PRN Reason Stop Dose Admin Diphenhydramine HCl 50 mg 03/28/19 06:57 03/28/19 07:15 Benadryl IVPUSH 03/28/19 06:58 50 mg ONETIME ONE Administration Hydromorphone HCl 1 mg 03/28/19 07:57 03/28/19 08:05 Dilaudid IVPUSH 03/28/19 07:58 1 mg ONETIME ONE Administration Ketorolac Tromethamine 30 mg 03/28/19 06:57 03/28/19 07:14 Toradol IVPUSH 03/28/19 06:58 30 mg ONETIME ONE Administration Prochlorperazine Edisylate 10 mg 03/28/19 06:56 03/28/19 07:14 Compazine IVPUSH 03/28/19 06:57 10 mg ONETIME ONE Administration - Re-Assessments/Exams Free Text/Narrative Re-Assessment/Exam: 03/28/19 07:00 I ordered an IV saline lock, compazine 10mg IV, toradol 30mg IV and benadryl 50mg IV. 03/28/19 08:32 She still had pain so I had to give her a total of 1.5mgs more of diluadid. I will discharge her home. Departure - Departure Time of Disposition: 08:35 Disposition: Home, Self-Care 01 Condition: Good Clinical Impression: Migraine - Discharge Information *PRESCRIPTION DRUG MONITORING PROGRAM REVIEWED*: No *COPY OF PRESCRIPTION DRUG MONITORING REPORT IN PATIENT YANIV: No Referrals: Tom Marcus MD [Primary Care Provider] - Forms: ED Department Discharge, ED Return to Work/School Form Additional Instructions: Go home and rest. Take tylenol or motrin for any pain. Please return if you are worse. - My Orders Last 24 Hours: My Active Orders 03/28/19 06:56 Peripheral IV Care [RC] . DIRECTED Sodium Chloride 0.9% [Saline Flush] 10 ml FLUSH ASDIRECTED PRN Peripheral IV Insertion Adult [OM.PC] Routine - Assessment/Plan Last 24 Hours: My Active Orders 03/28/19 06:56 Peripheral IV Care [RC] . DIRECTED Sodium Chloride 0.9% [Saline Flush] 10 ml FLUSH ASDIRECTED PRN Peripheral IV Insertion Adult [OM.PC] Routine
[2019-03-28] MEDS ORDERED: HYDROmorphone 1 MG/ML Syringe IVPUSH ONE (07:57)
[2019-03-28] MEDS ORDERED: HYDROmorphone 0.5 MG/0.5 ML Syringe IVPUSH ONE (08:32)
== END 2019-03-28 08:42 | disposition home or self-care (01) ==
LOC: JD.ED 06:35
DX: G43.909 Migraine, unspecified, not intractable, without status migrainosus (principal); I10 Essential (primary) hypertension; E11.9 Type 2 diabetes mellitus without complications; E03.9 Hypothyroidism, unspecified; E66.9 Obesity, unspecified; F32.9 Major depressive disorder, single episode, unspecified; F41.9 Anxiety disorder, unspecified; Z88.0 Allergy status to penicillin; Z79.899 Other long term (current) drug therapy; Z79.84 Long term (current) use of oral hypoglycemic drugs; Z79.890 Hormone replacement therapy
CPT/HCPCS: 96374; 96375; 99283; J0780; J1170; J1200; J1885; 99284

== ENCOUNTER 2019-06-01 15:07 | Inpatient (IN) | payer MEDICAID ==
[2019-06-01] MEDS ORDERED: fentaNYL 100 MCG/2 ML SDV IVPUSH ONE (15:47)
[2019-06-01] MEDS ORDERED: Metoclopramide 10 MG/2 ML SDV IVPUSH ONE (15:48)
--- NOTE | 2019-06-01 15:53 | EDM.PDOC ---
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 Patient states that she underwent a laparoscopic-assisted vaginal hysterectomy by Dr. Tom Phillips on 21 September of this year. At any bleeding postop. A copy of his operative note says that there was a large boggy uterus weighing 255 g. Surgically absent bilateral fallopian tubes however there was a small remaining portion of the fimbriated end of the left fallopian tube on the left ovary that was also removed. Therefore he did do a partial left salpingectomy but both ovaries were left in. stated that she started to bleed heavily per vagina after wakening about 1510 hrs. today. Denies any recent intercourse or foreign bodies in the vagina. She states by red blood per vagina with pain rating up into her left paracolic gutter into her back. He states she got in the bathtub and the bleeding persisted. He came in wearing a giant maxi pad was soaked with blood and she states she soaked towels at home. She is feeling lightheaded and dizzy. She has no known bleeding diathesis. She's had no solid food today. She did have sips of water en route to the hospital. Onset: Today, Sudden Onset Date: 06/01/19 Onset Time: 15:10 Duration: Minutes: Location: Reports: Other (Heavy bleeding per vagina.) Quality: Reports: Ache, Stabbing (Every 6 hours stabbing pain left lower quadrant of the abdomen rating up towards the left flank.) Severity: Severe Improves with: Reports: None Worsens with: Reports: None Context: Reports: Other (Spontaneous bleeding per vagina). Denies: Activity, Exercise, Lifting, Sick Contact, Trauma Associated Symptoms: Reports: Nausea/Vomiting (Nausea without vomiting) Treatments BUILDING ANALYST/SUPERVISOR: Reports: Other (see below) (None.) Left Lower Pelvic Pain Score (Numeric/FACES): 10 - Related Data Allergies Allergy/AdvReac Type Severity Reaction Status Date / Time Penicillins Allergy Cannot Verified 03/28/19 06:44 Remember Home Meds: Home Meds Lisinopril 10 mg PO DAILY 09/20/18 [History] metFORMIN [Glucophage] 500 mg PO BID 09/20/18 [History] Ibuprofen 600 mg PO Q6H PRN #60 tablet 09/21/18 [Rx] Levothyroxine [Synthroid] 50 mcg PO DAILY 09/21/18 [History] Past Medical History HEENT History: Reports: Other (See Below) Other HEENT History: TMJ, has dentures Cardiovascular History: Reports: Hypertension Respiratory History: Reports: Sleep Apnea, SOB Genitourinary History: Reports: None, Other (See Below) Other Genitourinary History: endometrial biopsy, vaginal pain AIRPLANE PATROLLER History: Reports: Dysfunctional Uterine Bleeding, Other (See Below) Other AIRPLANE PATROLLER History: endometrial biopsy Musculoskeletal History: Reports: Fracture Neurological History: Reports: Migraines Psychiatric History: Reports: Anxiety, Depression Endocrine/Metabolic History: Reports: Diabetes, Type II, Hypothyroidism, Obesity /BMI 30+ Hematologic History: Reports: Anemia Immunologic History: Reports: None Oncologic (Cancer) History: Reports: None Dermatologic History: Reports: None - Past Surgical History Head Surgeries/Procedures: Reports: None HEENT Surgical History: Reports: Oral Surgery, Tonsillectomy Cardiovascular Surgical History: Reports: None Respiratory Surgical History: Reports: None GI Surgical History: Reports: Appendectomy Female Surgical History: Reports: Hysterectomy, Tubal Ligation, Other (See Below) Other Female Surgeries/Procedures: still has ovaries Endocrine Surgical History: Reports: None Neurological Surgical History: Reports: C-Spine Oncologic Surgical History: Reports: None Dermatological Surgical History: Reports: None Social & Family History - Tobacco Use Smoking Status *Q: Never Smoker - Caffeine Use Caffeine Use: Reports: Soda - Recreational Drug Use Recreational Drug Use: No - Living Situation & Occupation Living situation: Reports: , with Family (Daughter, her ) Occupation: Unemployed ED ROS GENERAL - Review of Systems Review Of Systems: See Below Constitutional: Reports: Malaise, Weakness, Fatigue. Denies: Fever, Chills HEENT: Reports: No Symptoms Respiratory: Reports: No Symptoms Cardiovascular: Reports: No Symptoms Endocrine: Reports: Fatigue GI/Abdominal: Reports: No Symptoms : Reports: No Symptoms, Other (Sudden onset of bright red bleeding per vagina within the last hour.) Musculoskeletal: Reports: Joint Pain Skin: Reports: No Symptoms (Arthritis in her hands knees hips and low back) Neurological: Reports: No Symptoms Psychiatric: Reports: No Symptoms Hematologic/Lymphatic: Reports: No Symptoms Immunologic: Reports: No Symptoms ED EXAM, RENAL/ - Physical Exam Exam: See Below Exam Limited By: No Limitations General Appearance: Alert, Mild Distress Eye Exam: Bilateral Eye: Normal Inspection, PERRL Throat/Mouth: Normal Inspection, Normal Lips, Normal Oropharynx Head: Atraumatic, Normocephalic Neck: Normal Inspection, Supple, Non-Tender, Full Range of Motion. No: Lymphadenopathy (L), Lymphadenopathy (R) Respiratory/Chest: Lungs Clear (Mild tachypnea due to anxiety. Respiratory distress 24. O2 sats are 98%.), Normal Breath Sounds, No Accessory Muscle Use, Chest Non-Tender, Respiratory Distress Cardiovascular: Normal Peripheral Pulses, Regular Rate, Rhythm, No Edema, No Gallop, No Murmur, No Rub GI/Abdominal: No Organomegaly, No Distention, No Mass, Guarding, Tender (Tender to palpation left lower quadrant up to the left hemiabdomen.), Abnormal Bowel Sounds (Bowel sounds are absent in all 4 quadrants.). No: Rigid ( There is guarding in this area.), Rebound (Female) Exam: Vaginal Bleeding, Other (Patient is bleeding bright red blood on the arterial like looking blood per vagina on simple inspection of the introitus.). No: Normal External Exam Back Exam: Normal Inspection, Full Range of Motion. No: CVA Tenderness (L), CVA Tenderness (R) Extremities: Normal Inspection, Normal Range of Motion, Non-Tender Neurological: Alert, Oriented, CN II-XII Intact, Normal Cognition Psychiatric: Normal Affect, Normal Mood Skin Exam: Warm, Dry, Intact, Normal Color, No Rash Course - Vital Signs Last Recorded V/S: Last Vital Signs Temp 36.4 C 06/01/19 17:01 Pulse 85 06/01/19 17:01 Resp 18 06/01/19 17:01 BP 147/90 H 06/01/19 17:01 Pulse Ox 97 06/01/19 17:01 - Orders/Labs/Meds Orders: Active Orders 24 hr Category Date Time Status Patient Status [ADT] Routine ADT 06/01/19 17:08 Active Antiembolic Devices [RC] PER UNIT ROUTINE Care 06/01/19 17:10 Active EKG Documentation Completion [RC] STAT Care 06/01/19 15:49 Active Peripheral IV Care [RC] . DIRECTED Care 06/01/19 17:10 Active Verify Patient Consent Obtain [RC] PER UNIT ROUTINE Care 06/01/19 17:10 Active Nothing Per Oral Diet [DIET] Diet 06/01/19 Lunch Active PACKED CELLS [RED BLOOD CELLS LP] [BBK] Stat Lab 06/01/19 15:55 Received TYPE AND SCREEN [BBK] Stat Lab 06/01/19 15:55 Received URINALYSIS W/MICROSCOPIC [UA W/MICROSCOPIC] [URIN] Stat Lab 06/01/19 15:49 Ordered Sodium Chloride 0.9% [Normal Saline] 1,000 ml Med 06/01/19 16:00 Active IV ASDIRECTED Sodium Chloride 0.9% [Saline Flush] Med 06/01/19 17:09 Active 10 ml FLUSH ASDIRECTED PRN ceFAZolin [Ancef] 2 gm Med 06/01/19 17:09 Active Premix Bag 1 bag IV ONETIME Peripheral IV Insertion Adult [OM.PC] Urgent Oth 06/01/19 17:09 Ordered Schedule Procedure [COMM] Urgent Oth 06/01/19 17:05 Ordered Sequential Compression Device [OM.PC] Per Unit Routine Oth 06/01/19 17:10 Ordered Medication Orders Sodium Chloride (Normal Saline) 1,000 mls @ 999 mls/hr IV ASDIRECTED JACQUES Last Admin: 06/01/19 16:15 Dose: 999 mls/hr Cefazolin Sodium/Dextrose 2 gm (/ Premix) 50 mls @ 100 mls/hr IV ONETIME ONE Stop: 06/01/19 17:38 Sodium Chloride (Saline Flush) 10 ml FLUSH ASDIRECTED PRN PRN Reason: Keep Vein Open Labs: Laboratory Tests 06/01/19 06/01/19 06/01/19 Range/Units 15:55 15:55 15:55 WBC 9.38 (3.98-10.04) K/mm3 RBC 4.95 (3.98-5.22) M/mm3 Hgb 14.1 (11.2-15.7) gm/dl Hct 42.6 (34.1-44.9) % MCV 86.1 (79.4-94.8) fl MCH 28.5 (25.6-32.2) pg MCHC 33.1 (32.2-35.5) g/dl RDW Std Deviation 50.0 H (36.4-46.3) fL Plt Count 303 (182-369) K/mm3 MPV 8.2 L (9.4-12.3) fl Neut % (Auto) 61.5 (34.0-71.1) % Lymph % (Auto) 21.4 (19.3-51.7) % [place] % (Auto) 9.5 (4.7-12.5) % Eos % (Auto) 6.6 H (0.7-5.8) Baso % (Auto) 0.6 (0.1-1.2) % Neut # (Auto) 5.76 (1.56-6.13) K/mm3 Lymph # (Auto) 2.01 (1.18-3.74) K/mm3 [place] # (Auto) 0.89 H (0.24-0.36) K/mm3 Eos # (Auto) 0.62 H (0.04-0.36) K/mm3 Baso # (Auto) 0.06 (0.01-0.08) K/mm3 PT 9.9 (9.7-12.0) SECONDS INR < 0.93 APTT 26 (22-31) SECONDS Sodium 136 (136-145) mEq/L Potassium 3.6 (3.5-5.1) mEq/L Chloride 101 (98-107) mEq/L Carbon Dioxide 24 (21-32) mEq/L Anion Gap 14.6 (5-15) BUN 13 (7-18) mg/dL Creatinine 0.9 (0.55-1.02) mg/dL Est Cr Clr Drug Dosing 70.78 mL/min Estimated GFR (MDRD) > 60 (>60) mL/min BUN/Creatinine Ratio 14.4 (14-18) Glucose 141 H (74-106) mg/dL Calcium 9.2 (8.5-10.1) mg/dL Total Bilirubin 0.6 (0.2-1.0) mg/dL AST 13 L (15-37) U/L ALT 25 (14-59) U/L Alkaline Phosphatase 89 (46-116) U/L Total Protein 8.1 (6.4-8.2) g/dl Albumin 3.8 (3.4-5.0) g/dl Globulin 4.3 gm/dL Albumin/Globulin Ratio 0.9 L (1-2) Meds: Medications Generic Name Dose Route Start Last Admin Trade Name Freq PRN Reason Stop Dose Admin Sodium Chloride 1,000 mls @ 999 mls/hr 06/01/19 16:00 06/01/19 16:15 Normal Saline IV 999 mls/hr ASDIRECTED JACQUES Administration Cefazolin Sodium/Dextrose 2 gm 50 mls @ 100 mls/hr 06/01/19 17:09 / Premix IV 06/01/19 17:38 ONETIME ONE Sodium Chloride 10 ml 06/01/19 17:09 Saline Flush FLUSH ASDIRECTED PRN Keep Vein Open Discontinued Medications Generic Name Dose Route Start Last Admin Trade Name Freq PRN Reason Stop Dose Admin Fentanyl 100 mcg 06/01/19 15:47 06/01/19 16:13 Sublimaze IVPUSH 06/01/19 15:48 100 mcg ONETIME ONE Administration Fentanyl Confirm 06/01/19 16:59 Sublimaze Administered 06/01/19 17:00 Dose 100 mcg .ROUTE .STK-MED ONE Lidocaine HCl Confirm 06/01/19 16:59 Xylocaine-Mpf 1% Administered 06/01/19 17:00 Dose 4 mls @ as directed .ROUTE .STK-MED ONE Iopamidol 100 ml 06/01/19 16:14 06/01/19 16:25 Isovue-300 (61%) IVPUSH 06/01/19 16:15 100 ml ONETIME ONE Administration Metoclopramide HCl 10 mg 06/01/19 15:48 06/01/19 16:11 Reglan IVPUSH 06/01/19 15:49 10 mg ONETIME ONE Administration Propofol Confirm 06/01/19 16:59 Diprivan 20 Ml Administered 06/01/19 17:00 Dose 200 mg .ROUTE .STK-MED ONE Rocuronium [place] Confirm 06/01/19 16:59 Zemuron Administered 06/01/19 17:00 Dose 100 mg .ROUTE .STK-MED ONE Sodium Chloride 10 ml 06/01/19 16:14 06/01/19 16:10 Saline Flush FLUSH 06/01/19 16:15 10 ml ONETIME ONE Administration Succinylcholine Chloride Confirm 06/01/19 16:59 Succinylcholine In Ns Pf Administered 06/01/19 17:00 Dose 100 mg .ROUTE .[facility] ONE - Radiology Interpretation Free Text/Narrative:: 49-year-old female presents the ED with sudden onset of severe heavy bright red bleeding per vagina. Patient has had total bowel hysterectomy by a vaginal- assisted laparoscopic surgery by Dr. Santos with 21 of September of this year. Therefore bleeding has to be coming from the vaginal cuff. Clinically she appears to be bleeding into the left hemiabdomen and left paracolic gutter due to the severity of her pain. Bleeding started about a half an hour prior to coming to the ED. It is very heavily having soaked towels and a depends. She is bleeding per vaginal introitus. Therefore I did call [facility] on-call OB/ FREIGHT HUSTLER labs were drawn she will have 2 IV started normal saline at open. Crossmatched for 2 units of packed RBCs. She is nothing by mouth as far as solid foods but has taken some sips of water en route to the hospital. She has not ate since yesterday. Plan will be to take her to CT with IV contrast to see appears a large amount of blood in the abdomen. He denies some form of surgical intervention at this time. - Re-Assessments/Exams Free Text/Narrative Re-Assessment/Exam: 06/01/19 17:20 Labs reveal a normal white count at 9.38. Auto differential 61.5 % neutrophils. Hemoglobin is 14.1 with hematocrit of 42.6. Platelet count 303, 000. PT is 9.9 with an INR of less than 0.93. PTT is 26. Sodium is 136 with a potassium of 3.6. Chloride is 11 with a bicarbonate of 24. Anion gap is 14.6. BUN is 13 with a creatinine of 0.9. Glucose is 141. Calcium is 9.2. Liver function is normal. Total protein 8.1 with an albumin fraction of 3.8. CT of the head and pelvis has been performed with IV contrast only. Findings of prior hysterectomy is appreciated. There is distention of the vagina with mixed density material. This presumably is due to blood. No additional abnormality appreciated within or next to the vaginal cuff. Visualized lung bases show nothing acute. Liver contains no focal abnormality. Spleen appears to be within normal limits. Nodule is seen within the left adrenal gland measuring 1.5 cm. This appears fairly similar to previous exam. Kidneys show symmetric contrast enhancement without hydronephrosis or mass. Small low density finding is seen within the lower right kidney measuring 7 mm in size which is most likely a small cyst. Pancreas is within normal limits. Gallbladder contains no calcified gallstones. Aorta shows atherosclerotic calcification which continues into the iliac vessels. No retroperitoneal adenopathy or mesenteric abnormalities are identified. No pelvic mass or adenopathy noted. No free fluid or inflammatory changes seen. Appendix is not seen with surgical material being seen around the tip of the cecum. No acute bony abnormality seen on bone window settings. Dr. Tovar is here from AIRPL[employer] PATROLLER department and will be taking the patient to surgery for exploration of the reason she is bleeding heavily per vagina. Presumably something is happened at the vaginal cuff with mild dehiscence with arterial bleed. Patient's vitals have remained stable in the ED. Departure - Departure Time of Disposition: 17:23 Disposition: DC/Tfer to Critical Access 66 Condition: Fair Clinical Impression: Vaginal hemorrhage - Discharge Information *PRESCRIPTION DRUG MONITORING PROGRAM REVIEWED*: Not Applicable *COPY OF PRESCRIPTION DRUG MONITORING REPORT IN PATIENT YANIV: Not Applicable - My Orders Last 24 Hours: My Active Orders 06/01/19 15:49 EKG Documentation Completion [RC] STAT URINALYSIS W/MICROSCOPIC [UA W/MICROSCOPIC] [URIN] Stat 06/01/19 15:55 PACKED CELLS [RED BLOOD CELLS LP] [BBK] Stat TYPE AND SCREEN [BBK] Stat 06/01/19 16:00 Sodium Chloride 0.9% [Normal Saline] 1,000 ml IV ASDIRECTED - Assessment/Plan Last 24 Hours: My Active Orders 06/01/19 15:49 EKG Documentation Completion [RC] STAT URINALYSIS W/MICROSCOPIC [UA W/MICROSCOPIC] [URIN] Stat 06/01/19 15:55 PACKED CELLS [RED BLOOD CELLS LP] [BBK] Stat TYPE AND SCREEN [BBK] Stat 06/01/19 16:00 Sodium Chloride 0.9% [Normal Saline] 1,000 ml IV ASDIRECTED
[2019-06-01] MEDS ORDERED: Sodium Chloride 0.9% 1,000 ML IV SCH (16:00)
[2019-06-01] MEDS ORDERED: Iopamidol 612 MG/ML 100 ML Bottle IVPUSH ONE (16:14)
[2019-06-01] MEDS ORDERED: Diatrizoate Meglumine/Diatrizoate Sodium 37% 120 ML Bottle PO ONE (16:14)
[2019-06-01] MEDS ORDERED: Sodium Chloride 0.9% 10 ML Syringe FLUSH ONE (16:14)
--- NOTE | 2019-06-01 16:30 | PCM.CONS ---
H&P History of Present Illness - General Date of Service: 06/01/19 Source of Information: Patient History Limitations: Reports: No Limitations - History of Present Illness Initial Comments - Free Text/Narative: Patient is a 49 y/o woman who is s/p LAV in 08/2018 for heavy bleeding. Had done well after surgery with no issues. States has never been sexually active after surgery. Today woke up out of sleep and noted she was bleeding everywhere in her bed. This was at about 1430. Presented immediately to the ER. Estimates she soaked through several towels on her way here. Feeling some pain in her upper abdomen and weak. No new physical activity in the last few days. No other bowel or bladder concerns. Left Lower Pelvic Pain Score (Numeric/FACES): 10 - Related Data Allergies/Adverse Reactions: Allergies Allergy/AdvReac Type Severity Reaction Status Date / Time Penicillins Allergy Cannot Verified 03/28/19 06:44 Remember Home Medications: Home Meds Lisinopril 10 mg PO DAILY 09/20/18 [History] metFORMIN [Glucophage] 500 mg PO BID 09/20/18 [History] Ibuprofen 600 mg PO Q6H PRN #60 tablet 09/21/18 [Rx] Levothyroxine [Synthroid] 50 mcg PO DAILY 09/21/18 [History] Past Medical History HEENT History: Reports: Other (See Below) Other HEENT History: TMJ, has dentures Cardiovascular History: Reports: Hypertension Respiratory History: Reports: Sleep Apnea 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: , Spontaneous : 2 Para: 1 Musculoskeletal History: Reports: Fracture Neurological History: Reports: Migraines Psychiatric History: Reports: Anxiety, Depression Endocrine/Metabolic History: Reports: Diabetes, Type II, Hypothyroidism, Obesity /BMI 30+ - Past Surgical History HEENT Surgical History: Reports: Oral Surgery, Tonsillectomy GI Surgical History: Reports: Appendectomy Female Surgical History: Reports: Hysterectomy, Tubal Ligation Neurological Surgical History: Reports: Other (See Below) (neck surgery) Social & Family History - Tobacco Use Smoking Status *Q: Never Smoker - Caffeine Use Caffeine Use: Reports: Soda - Recreational Drug Use Recreational Drug Use: No - Living Situation & Occupation Living situation: Reports: , with Family (Daughter, her ) Occupation: Unemployed H&P Review of Systems - Review of Systems: Review Of Systems: See Below General: Reports: Weakness, Fatigue Pulmonary: Reports: No Symptoms Cardiovascular: Reports: No Symptoms Gastrointestinal: Reports: Abdominal Pain Genitourinary: Reports: Other (heavy bleeding ) Musculoskeletal: Reports: No Symptoms Psychiatric: Reports: No Symptoms Neurological: Reports: No Symptoms Exam - Exam Exam: See Below - Vital Signs Vital Signs: Last Vital Signs Temp 36.8 C 06/01/19 15:25 Pulse 100 06/01/19 15:25 Resp 24 H 06/01/19 15:25 BP 170/94 H 06/01/19 15:25 Pulse Ox 98 06/01/19 15:25 Weight: 97.976 kg - Exam General: Alert, Oriented, Cooperative, Mild Distress Lungs: Clear to Auscultation, Normal Respiratory Effort Cardiovascular: Regular Rhythm, Tachycardia GI/Abdominal Exam: Soft, Tender (lower abdomen). No: Guarding, Rebound (Female) Exam: Vaginal Bleeding, Other (Exam limited due to patient anxiety and amount of bleeding) Extremities: Normal Inspection - Patient Data Lab Results Last 24 hrs: Laboratory Results - last 24 hr 06/01/19 Range/Units 15:55 WBC 9.38 (3.98-10.04) K/mm3 RBC 4.95 (3.98-5.22) M/mm3 Hgb 14.1 (11.2-15.7) gm/dl Hct 42.6 (34.1-44.9) % MCV 86.1 (79.4-94.8) fl MCH 28.5 (25.6-32.2) pg MCHC 33.1 (32.2-35.5) g/dl RDW Std Deviation 50.0 H (36.4-46.3) fL Plt Count 303 (182-369) K/mm3 MPV 8.2 L (9.4-12.3) fl Neut % (Auto) 61.5 (34.0-71.1) % Lymph % (Auto) 21.4 (19.3-51.7) % Branch % (Auto) 9.5 (4.7-12.5) % Eos % (Auto) 6.6 H (0.7-5.8) Baso % (Auto) 0.6 (0.1-1.2) % Neut # (Auto) 5.76 (1.56-6.13) K/mm3 Lymph # (Auto) 2.01 (1.18-3.74) K/mm3 Branch # (Auto) 0.89 H (0.24-0.36) K/mm3 Eos # (Auto) 0.62 H (0.04-0.36) K/mm3 Baso # (Auto) 0.06 (0.01-0.08) K/mm3 Result Diagrams: 06/01/19 15:55 06/01/19 15:55 Consult PN Assessment/Plan Procedures: Procedures ASSAY OF IRON (10/29/18) ASSAY OF TRANSFERRIN (10/29/18) ASSAY OF TROPONIN QUANT (09/20/18) ASSAY THYROID STIM HORMONE (04/23/19) BL SMEAR W/DIFF WBC COUNT (09/09/18) BLOOD TYPING SEROLOGIC ABO (09/21/18) BLOOD TYPING SEROLOGIC RH(D) (09/21/18) C-REACTIVE PROTEIN (04/23/19) CHORIONIC GONADOTROPIN ASSAY (09/07/18) CHYLMD TRACH DNA AMP PROBE (04/01/19) COMPLETE CBC AUTOMATED (10/29/18) COMPLETE CBC W/AUTO DIFF WBC (04/23/19) COMPREHEN METABOLIC PANEL (05/03/19) CT ABD & PELV W/CONTRAST (09/15/18) CT HEAD/BRAIN W/O DYE (05/03/19) ELECTROCARDIOGRAM TRACING (09/20/18) EMERGENCY DEPT VISIT (03/28/19) EMERGENCY DEPT VISIT (09/20/18) GLUCOSE BLOOD TEST (09/21/18) GLYCOSYLATED HEMOGLOBIN TEST (04/23/19) HYDRATE IV INFUSION ADD-ON (09/20/18) LAPARO-VAG HYST INCL T/O (09/21/18) METABOLIC PANEL TOTAL CA (10/29/18) N.GONORRHOEAE DNA AMP PROB (04/01/19) RBC ANTIBODY SCREEN (09/21/18) ROUTINE VENIPUNCTURE (05/03/19) SMEAR WET [place] SALINE/INK (04/01/19) THER/PROPH/DIAG INJ IV PUSH (03/28/19) TRANSVAGINAL US NON-OB (09/07/18) TRICHOMONAS ASSAY W/OPTIC (04/01/19) TX/PRO/DX INJ NEW DRUG ADDON (03/28/19) TX/PRO/DX INJ SAME DRUG 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 Presents with acute bleeding. Suspect vaginal cuff dehiscence. Plan EUA in OR, possible vaginal repair vs exploratory laparotomy and abdominal repair. Other surgeries as indicated. patient agrees. Consent signed. Jeri MATA
[2019-06-01] MEDS ORDERED: Succinylcholine/Normal Saline 100 MG/5 ML Syringe ONE (16:59)
[2019-06-01] MEDS ORDERED: fentaNYL 100 MCG/2 ML SDV ONE ×2 (16:59→17:56)
[2019-06-01] MEDS ORDERED: Propofol 200 MG/20 ML SDV ONE (16:59)
[2019-06-01] MEDS ORDERED: Lidocaine 1% 4 ML ONE (16:59)
[2019-06-01] MEDS ORDERED: Rocuronium 100 MG/10 ML MDV ONE (16:59)
--- NOTE | 2019-06-01 17:08 | CT ---
CT abdomen and pelvis Technique: Multiple axial sections were obtained from above the dome of the diaphragm inferiorly through the pubic symphysis. Intravenous contrast was utilized. No oral contrast has been given. Comparison: Previous CT abdomen and pelvis exam of 09/15/18. Findings: Prior hysterectomy is noted. There is distention of the vagina with mixed density material. This presumably is due to blood. No additional abnormality is appreciated within or next to the vaginal cuff. Visualized lung bases show nothing acute. Liver contains no focal abnormality. Spleen appears within normal limits. Nodule is seen within the left adrenal gland measuring 1.5 cm. This appears fairly similar to previous exam. Kidneys show symmetric contrast enhancement without hydronephrosis or mass. Small low density finding is seen within the lower right kidney measuring 7 mm in size which is most likely a small cyst. Pancreas is within normal limits. Gallbladder contains no calcified gallstones. Aorta shows atherosclerotic calcification which continues into the iliac vessels. No retroperitoneal adenopathy or mesenteric abnormalities are seen. No pelvic mass or adenopathy is seen. No free fluid or inflammatory change is seen. Appendix not seen with surgical material being seen around the tip of the cecum. No acute bony abnormality is seen on bone window settings. Very small umbilical hernia seen containing fat. Impression: 1. Distention of the vagina with mixed density material presumably due to blood. No discrete abnormality is seen by CT within the vaginal cuff. Interval hysterectomy from previous CT exam. 2. Other findings believed to be incidental as noted above. Nothing acute is otherwise seen. Diagnostic code #3 This report was dictated in [place] Standard Time
[2019-06-01] MEDS ORDERED: Sodium Chloride 0.9% 10 ML Syringe FLUSH PRN (17:09)
[2019-06-01] MEDS ORDERED: ceFAZolin 2 GM in Premix Bag 1 BAG IV ONE (17:09)
--- NOTE | 2019-06-01 17:39 | PCM.PREANE ---
Preanesthetic Assessment - Procedure Proposed Procedure: Vaginal exam with possible exploratory laparotomy - Anesthesia/Transfusion/Family Hx Anesthesia History: Prior Anesthesia Without Reaction Transfusion History: Prior Transfusion Without Reaction Intubation History: Unknown (Patient states that "she does not know" if she had trouble with intubation. Had prior fusion.) - Review of Systems General: No Symptoms Pulmonary: No Symptoms Cardiovascular: Other (HTN) Gastrointestinal: Abdominal Pain Neurological: No Symptoms Other: Reports: None, Thyroid Problems - Physical Assessment NPO Status Date: 06/01/19 NPO Status Time: 09:00 Vital Signs: Last Vital Signs Temp 36.4 C 06/01/19 17:01 Pulse 85 06/01/19 17:01 Resp 18 06/01/19 17:01 BP 147/90 H 06/01/19 17:01 Pulse Ox 97 06/01/19 17:01 Height: 5 ft 6 in Weight: 97.976 kg ASA Class: 2E Mental Status: Alert & Oriented x3 Airway Class: Mallampati = 3 Dentition: Reports: Dentures, Broken Tooth/Teeth, Missing Tooth/Teeth Thyro-Mental Finger Breadths: 3 Mouth Opening Finger Breadths: 3 ROM/Head Extension: Limited/Partial Lungs: Clear to Auscultation, Normal Respiratory Effort Cardiovascular: Regular Rate, Regular Rhythm - Lab Values: Laboratory Last Values WBC 9.38 K/mm3 (3.98-10.04) 06/01/19 15:55 RBC 4.95 M/mm3 (3.98-5.22) 06/01/19 15:55 Hgb 14.1 gm/dl (11.2-15.7) 06/01/19 15:55 Hct 42.6 % (34.1-44.9) 06/01/19 15:55 MCV 86.1 fl (79.4-94.8) 06/01/19 15:55 MCH 28.5 pg (25.6-32.2) 06/01/19 15:55 MCHC 33.1 g/dl (32.2-35.5) 06/01/19 15:55 RDW Std Deviation 50.0 fL (36.4-46.3) H 06/01/19 15:55 Plt Count 303 K/mm3 (182-369) 06/01/19 15:55 MPV 8.2 fl (9.4-12.3) L 06/01/19 15:55 Neut % (Auto) 61.5 % (34.0-71.1) 06/01/19 15:55 Lymph % (Auto) 21.4 % (19.3-51.7) 06/01/19 15:55 [place] % (Auto) 9.5 % (4.7-12.5) 06/01/19 15:55 Eos % (Auto) 6.6 (0.7-5.8) H 06/01/19 15:55 Baso % (Auto) 0.6 % (0.1-1.2) 06/01/19 15:55 Neut # (Auto) 5.76 K/mm3 (1.56-6.13) 06/01/19 15:55 Lymph # (Auto) 2.01 K/mm3 (1.18-3.74) 06/01/19 15:55 [place] # (Auto) 0.89 K/mm3 (0.24-0.36) H 06/01/19 15:55 Eos # (Auto) 0.62 K/mm3 (0.04-0.36) H 06/01/19 15:55 Baso # (Auto) 0.06 K/mm3 (0.01-0.08) 06/01/19 15:55 PT 9.9 SECONDS (9.7-12.0) 06/01/19 15:55 INR < 0.93 06/01/19 15:55 APTT 26 SECONDS (22-31) 06/01/19 15:55 Sodium 136 mEq/L (136-145) 06/01/19 15:55 Potassium 3.6 mEq/L (3.5-5.1) 06/01/19 15:55 Chloride 101 mEq/L (98-107) 06/01/19 15:55 Carbon Dioxide 24 mEq/L (21-32) 06/01/19 15:55 Anion Gap 14.6 (5-15) 06/01/19 15:55 BUN 13 mg/dL (7-18) 06/01/19 15:55 Creatinine 0.9 mg/dL (0.55-1.02) 06/01/19 15:55 Est Cr Clr Drug Dosing 70.78 mL/min 06/01/19 15:55 Estimated GFR (MDRD) > 60 mL/min (>60) 06/01/19 15:55 BUN/Creatinine Ratio 14.4 (14-18) 06/01/19 15:55 Glucose 141 mg/dL (74-106) H 06/01/19 15:55 Calcium 9.2 mg/dL (8.5-10.1) 06/01/19 15:55 Total Bilirubin 0.6 mg/dL (0.2-1.0) 06/01/19 15:55 AST 13 U/L (15-37) L 06/01/19 15:55 ALT 25 U/L (14-59) 06/01/19 15:55 Alkaline Phosphatase 89 U/L (46-116) 06/01/19 15:55 Total Protein 8.1 g/dl (6.4-8.2) 06/01/19 15:55 Albumin 3.8 g/dl (3.4-5.0) 06/01/19 15:55 Globulin 4.3 gm/dL 06/01/19 15:55 Albumin/Globulin Ratio 0.9 (1-2) L 06/01/19 15:55 - Allergies Allergies/Adverse Reactions: Allergies Allergy/AdvReac Type Severity Reaction Status Date / Time Penicillins Allergy Cannot Verified 03/28/19 06:44 Remember - Anesthesia Plan Pre-Op Medication Ordered: None - Acknowledgements Anesthesia Type Planned: General Anesthesia Pt an Appropriate Candidate for the Planned Anesthesia: Yes Alternatives and Risks of Anesthesia Discussed w Pt/Guardian: Yes Pt/Guardian Understands and Agrees with Anesthesia Plan: Yes PreAnesthesia Questionnaire HEENT History: Reports: Other (See Below) Other HEENT History: TMJ, has dentures Cardiovascular History: Reports: Hypertension Respiratory History: Reports: Sleep Apnea, SOB Genitourinary History: Reports: None, Other (See Below) Other Genitourinary History: endometrial biopsy, vaginal pain BACKGROUND INVESTIGATOR History: Reports: Dysfunctional Uterine Bleeding, Other (See Below) Other OB/BYN History: endometrial biopsy Musculoskeletal History: Reports: Fracture Neurological History: Reports: Migraines Psychiatric History: Reports: Anxiety, Depression Endocrine/Metabolic History: Reports: Diabetes, Type II, Hypothyroidism, Obesity /BMI 30+ Hematologic History: Reports: Anemia Immunologic History: Reports: None Oncologic (Cancer) History: Reports: None Dermatologic History: Reports: None - Past Surgical History Head Surgeries/Procedures: Reports: None HEENT Surgical History: Reports: Oral Surgery, Tonsillectomy Cardiovascular Surgical History: Reports: None Respiratory Surgical History: Reports: None GI Surgical History: Reports: Appendectomy Female Surgical History: Reports: Hysterectomy, Tubal Ligation, Other (See Below) Other Female Surgeries/Procedures: still has ovaries Endocrine Surgical History: Reports: None Neurological Surgical History: Reports: C-Spine Oncologic Surgical History: Reports: None Dermatological Surgical History: Reports: None - SUBSTANCE USE Smoking Status *Q: Never Smoker Recreational Drug Use History: No - HOME MEDS Home Medications: Home Meds Lisinopril 10 mg PO DAILY 09/20/18 [History] metFORMIN [Glucophage] 500 mg PO BID 09/20/18 [History] Ibuprofen 600 mg PO Q6H PRN #60 tablet 09/21/18 [Rx] Levothyroxine [Synthroid] 50 mcg PO DAILY 09/21/18 [History] - CURRENT (IN HOUSE) MEDS Current Meds: Current Medications Sodium Chloride (Normal Saline) 1,000 mls @ 999 mls/hr IV ASDIRECTED JACQUES Last Admin: 06/01/19 16:15 Dose: 999 mls/hr Cefazolin Sodium/Dextrose 2 gm (/ Premix) 50 mls @ 100 mls/hr IV ONETIME ONE Stop: 06/01/19 17:38 Last Admin: 06/01/19 17:15 Dose: 100 mls/hr Sodium Chloride (Saline Flush) 10 ml FLUSH ASDIRECTED PRN PRN Reason: Keep Vein Open Discontinued Medications Fentanyl (Sublimaze) 100 mcg IVPUSH ONETIME ONE Stop: 06/01/19 15:48 Last Admin: 06/01/19 16:13 Dose: 100 mcg Fentanyl (Sublimaze) Confirm Administered Dose 100 mcg .ROUTE .STK-MED ONE Stop: 06/01/19 17:00 Lidocaine HCl (Xylocaine-Mpf 1%) Confirm Administered Dose 4 mls @ as directed .ROUTE .STK-MED ONE Stop: 06/01/19 17:00 Iopamidol (Isovue-300 (61%)) 100 ml IVPUSH ONETIME ONE Stop: 06/01/19 16:15 Last Admin: 06/01/19 16:25 Dose: 100 ml Metoclopramide HCl (Reglan) 10 mg IVPUSH ONETIME ONE Stop: 06/01/19 15:49 Last Admin: 06/01/19 16:11 Dose: 10 mg Propofol (Diprivan 20 Ml) Confirm Administered Dose 200 mg .ROUTE .STK-MED ONE Stop: 06/01/19 17:00 Rocuronium Mobile (Zemuron) Confirm Administered Dose 100 mg .ROUTE .STK-MED ONE Stop: 06/01/19 17:00 Sodium Chloride (Saline Flush) 10 ml FLUSH ONETIME ONE Stop: 06/01/19 16:15 Last Admin: 06/01/19 16:10 Dose: 10 ml Succinylcholine Chloride (Succinylcholine In Ns Pf) Confirm Administered Dose 100 mg .ROUTE .STK-MED ONE Stop: 06/01/19 17:00
[2019-06-01] MEDS ORDERED: Ondansetron 4 MG/2 ML SDV ONE (17:42)
[2019-06-01] MEDS ORDERED: Ondansetron 4 MG/2 ML SDV IVPUSH PRN ×2 (17:58→19:51)
[2019-06-01] MEDS ORDERED: HYDROmorphone 0.5 MG/0.5 ML Syringe IVPUSH PRN (17:58)
[2019-06-01] MEDS ORDERED: fentaNYL 100 MCG/2 ML SDV IVPUSH PRN (17:58)
[2019-06-01] MEDS ORDERED: ePHEDrine/Normal Saline 25 MG/5 ML Syringe ONE (18:01)
--- NOTE | 2019-06-01 18:33 | PCM.OPNOTE ---
<Nurys Tovar - Last Filed: 06/01/19 18:33> - General Post-Op/Procedure Note Date of Surgery/Procedure: 06/01/19 Condition: Good <Scar Abraham - Last Filed: 06/01/19 18:57> - General Post-Op/Procedure Note Free Text/Narrative:: Intake & Output 06/01/19 06/01/19 06/01/19 06:59 14:59 22:59 Output Total 400 Balance -400
--- NOTE | 2019-06-01 18:36 | PCM.POSTAN ---
POST ANESTHESIA ASSESSMENT - MENTAL STATUS Mental Status: Somnolent - VITAL SIGNS Vital Signs: Last Vital Signs Temp 36.4 C 06/01/19 17:01 Pulse 85 06/01/19 17:01 Resp 18 06/01/19 17:01 BP 147/90 H 06/01/19 17:01 Pulse Ox 97 06/01/19 17:01 - RESPIRATORY Respiratory Status: Respiratory Rate WNL, Airway Patent, O2 Saturation Stable ( NC O2 to keep SpO2 > 92%) - CARDIOVASCULAR CV Status: Pulse Rate WNL, Blood Pressure Stable - GASTROINTESTINAL GI Status: No Symptoms - PAIN Pain Score: 0 - POST OP HYDRATION Hydration Status: Adequate & Stable - OBSERVATIONS Free Text/Narrative:: Routine transfer to PACU and handoff to RN. VSS, SV, somnolent but responds to noxious stimuli, CTAB, no complications. No concerns at this time.
--- NOTE | 2019-06-01 19:07 | PCM.OPNOTE ---
- General Post-Op/Procedure Note Date of Surgery/Procedure: 06/01/19 Operative Procedure(s): Repair of vaginal cuff epithelium separation Findings: Large amount of clot noted at the top of the vagina. Cruz bleeding noted from epithelium at right side after clot evacuated. Epithelium , but is shallow and not able to actually identify peritoneum. No connection thought to be present into the peritoneal cavity Pre Op Diagnosis: Vaginal bleeding after hysterectomy Post-Op Diagnosis: Vaginal epithelium disruption Anesthesia Technique: General ET Tube Primary Surgeon: Nurys Tovar Anesthesia Provider: Scar Gerber Pathology: None Fluid Replacement, Intraop: 1,100 Output, Urine Amount: 400 EBL in mLs: 150 Complications: None Condition: Good Free Text/Narrative:: Patient taken to the OR where general anesthesia was induced without difficulty. Patient placed in lithotomy position with Max stirrups. Large amount of clot noted at vaginal introitus with this movement. Patient prepped and draped in the typical fashion. Miranda catheter placed into the bladder. Medium weighted speculum placed into the vagina. Enigma placed and elevated anterior vaginal wall. Clot noted at top of vagina. Suction/irrigation performed of the vagina. Bleeding noted at vaginal epithelium on patient's right and slight gap noted in vaginal epithelium about 3 cm total, however, complete dehiscence not noted. Interrupted suture of 0 vicryl placed around site of bleeding in figure of eight fashion. After this there is near resolution of bleeding. Several other interrupted sutures of 0 vicryl placed in figure of eight fashion along the vaginal epithelium to reapproximate gap. Hemostasis noted afterwards. Irrigation performed on last time of vagina. Procedure ended. Patient awoken and taken to PACU.
[2019-06-01] MEDS: Acetaminophen/oxyCODONE 325-5 MG Tab PO PRN (20:17)
[2019-06-01] MEDS ORDERED: Carbidopa/Levodopa 25-100 MG Tab PO ONE (20:29)
[2019-06-01] MEDS ORDERED: GENTAMICIN IV ONE (20:30)
[2019-06-01] MEDS ORDERED: SODIUM CHLORIDE 0.9% IV ONE (20:30)
[2019-06-01] MEDS: Ampicillin 2 GM in Sodium Chloride 0.9% 100 ML IV SCH (21:16)
[2019-06-01] MEDS ORDERED: Sodium Chloride 0.9% 100 ML ONE (21:37)
[2019-06-01] MEDS: Clindamycin Phosphate 900 MG in Sodium Chloride 0.9% 100 ML IV SCH (22:05)
[2019-06-02] MEDS: Acetaminophen/oxyCODONE 325-5 MG Tab PO PRN ×3 (00:32→11:31)
[2019-06-02] MEDS: Ampicillin 2 GM in Sodium Chloride 0.9% 100 ML IV SCH ×3 (02:29→14:42)
[2019-06-02] MEDS ORDERED: Levothyroxine 50 MCG Tab PO SCH (06:00)
[2019-06-02] MEDS ORDERED: Sodium Chloride 0.9% 100 ML ONE ×2 (06:10→13:30)
[2019-06-02] MEDS: Clindamycin Phosphate 900 MG in Sodium Chloride 0.9% 100 ML IV SCH (06:24)
[2019-06-02] MEDS ORDERED: Lisinopril 10 MG Tab PO SCH (09:00)
--- NOTE | 2019-06-02 09:41 | PCM.SURGPN ---
- General Info Date of Service: 06/02/19 POD#: 1 Functional Status: Reports: Pain Controlled, Tolerating Diet, Ambulating, Urinating - Review of Systems General: Reports: No Symptoms Pulmonary: Reports: No Symptoms Cardiovascular: Reports: No Symptoms Gastrointestinal: Reports: Abdominal Pain (managed with medications ) Genitourinary: Reports: Other (small amount of spotting ) Musculoskeletal: Reports: No Symptoms - Patient Data Vitals - Most Recent: Last Vital Signs Temp 36.7 C 06/02/19 06:27 Pulse 66 06/02/19 06:27 Resp 16 06/02/19 06:27 BP 125/92 H 06/02/19 08:52 Pulse Ox 100 06/02/19 06:27 Weight - Most Recent: 97.976 kg I&O - Last 24 Hours: Intake & Output 06/01/19 06/02/19 06/02/19 22:59 06:59 14:59 Intake Total 1300 Output Total 950 400 Balance 350 -400 Lab Results Last 24 Hrs: Laboratory Results - last 24 hr 06/01/19 06/01/19 06/01/19 Range/Units 15:55 15:55 15:55 WBC 9.38 (3.98-10.04) K/mm3 RBC 4.95 (3.98-5.22) M/mm3 Hgb 14.1 (11.2-15.7) gm/dl Hct 42.6 (34.1-44.9) % MCV 86.1 (79.4-94.8) fl MCH 28.5 (25.6-32.2) pg MCHC 33.1 (32.2-35.5) g/dl RDW Std Deviation 50.0 H (36.4-46.3) fL Plt Count 303 (182-369) K/mm3 MPV 8.2 L (9.4-12.3) fl Neut % (Auto) 61.5 (34.0-71.1) % Lymph % (Auto) 21.4 (19.3-51.7) % [place] % (Auto) 9.5 (4.7-12.5) % Eos % (Auto) 6.6 H (0.7-5.8) Baso % (Auto) 0.6 (0.1-1.2) % Neut # (Auto) 5.76 (1.56-6.13) K/mm3 Lymph # (Auto) 2.01 (1.18-3.74) K/mm3 [place] # (Auto) 0.89 H (0.24-0.36) K/mm3 Eos # (Auto) 0.62 H (0.04-0.36) K/mm3 Baso # (Auto) 0.06 (0.01-0.08) K/mm3 PT 9.9 (9.7-12.0) SECONDS INR < 0.93 APTT 26 (22-31) SECONDS Sodium 136 (136-145) mEq/L Potassium 3.6 (3.5-5.1) mEq/L Chloride 101 (98-107) mEq/L Carbon Dioxide 24 (21-32) mEq/L Anion Gap 14.6 (5-15) BUN 13 (7-18) mg/dL Creatinine 0.9 (0.55-1.02) mg/dL Est Cr Clr Drug Dosing 70.78 mL/min Estimated GFR (MDRD) > 60 (>60) mL/min BUN/Creatinine Ratio 14.4 (14-18) Glucose 141 H (74-106) mg/dL POC Glucose (70-105) mg/dL Calcium 9.2 (8.5-10.1) mg/dL Total Bilirubin 0.6 (0.2-1.0) mg/dL AST 13 L (15-37) U/L ALT 25 (14-59) U/L Alkaline Phosphatase 89 (46-116) U/L Total Protein 8.1 (6.4-8.2) g/dl Albumin 3.8 (3.4-5.0) g/dl Globulin 4.3 gm/dL Albumin/Globulin Ratio 0.9 L (1-2) Urine Color (Yellow) Urine Appearance (Clear) Urine pH (5.0-8.0) Ur Specific [place] (1.005-1.030) Urine Protein (Negative) Urine Glucose (UA) (Negative) Urine Ketones (Negative) Urine Occult Blood (Negative) Urine Nitrite (Negative) Urine Bilirubin (Negative) Urine Urobilinogen (0.2-1.0) Ur Leukocyte Esterase (Negative) Urine RBC (0-5) /hpf Urine WBC (0-5) /hpf Ur Squamous Epith Cells (0-5) /hpf Urine Bacteria (FEW) /hpf Urine Mucus (FEW) /hpf Blood Type Gel Antibody Screen Crossmatch 06/01/19 06/01/19 06/02/19 Range/Units 15:55 21:15 02:30 WBC 11.85 H (3.98-10.04) K/mm3 RBC 4.02 (3.98-5.22) M/mm3 Hgb 11.6 D (11.2-15.7) gm/dl Hct 35.4 (34.1-44.9) % MCV 88.1 (79.4-94.8) fl MCH 28.9 (25.6-32.2) pg MCHC 32.8 (32.2-35.5) g/dl RDW Std Deviation 50.9 H (36.4-46.3) fL Plt Count 276 (182-369) K/mm3 MPV 7.7 L (9.4-12.3) fl Neut % (Auto) (34.0-71.1) % Lymph % (Auto) (19.3-51.7) % [place] % (Auto) (4.7-12.5) % Eos % (Auto) (0.7-5.8) Baso % (Auto) (0.1-1.2) % Neut # (Auto) (1.56-6.13) K/mm3 Lymph # (Auto) (1.18-3.74) K/mm3 [place] # (Auto) (0.24-0.36) K/mm3 Eos # (Auto) (0.04-0.36) K/mm3 Baso # (Auto) (0.01-0.08) K/mm3 PT (9.7-12.0) SECONDS INR APTT (22-31) SECONDS Sodium (136-145) mEq/L Potassium (3.5-5.1) mEq/L Chloride (98-107) mEq/L Carbon Dioxide (21-32) mEq/L Anion Gap (5-15) BUN (7-18) mg/dL Creatinine (0.55-1.02) mg/dL Est Cr Clr Drug Dosing mL/min Estimated GFR (MDRD) (>60) mL/min BUN/Creatinine Ratio (14-18) Glucose (74-106) mg/dL POC Glucose (70-105) mg/dL Calcium (8.5-10.1) mg/dL Total Bilirubin (0.2-1.0) mg/dL AST (15-37) U/L ALT (14-59) U/L Alkaline Phosphatase (46-116) U/L Total Protein (6.4-8.2) g/dl Albumin (3.4-5.0) g/dl Globulin gm/dL Albumin/Globulin Ratio (1-2) Urine Color Yellow (Yellow) Urine Appearance Clear (Clear) Urine pH 6.0 (5.0-8.0) Ur Specific [place] > or = 1.030 (1.005-1.030) Urine Protein Negative (Negative) Urine Glucose (UA) Negative (Negative) Urine Ketones Negative (Negative) Urine Occult Blood Negative (Negative) Urine Nitrite Negative (Negative) Urine Bilirubin Negative (Negative) Urine Urobilinogen 0.2 (0.2-1.0) Ur Leukocyte Esterase Negative (Negative) Urine RBC 0-5 (0-5) /hpf Urine WBC 0-5 (0-5) /hpf Ur Squamous Epith Cells 0-5 (0-5) /hpf Urine Bacteria Few (FEW) /hpf Urine Mucus Many H (FEW) /hpf Blood Type A NEGATIVE Gel Antibody Screen Negative Crossmatch See Detail 06/02/19 06/02/19 Range/Units 04:45 08:21 WBC 9.61 (3.98-10.04) K/mm3 RBC 4.54 (3.98-5.22) M/mm3 Hgb 13.1 D (11.2-15.7) gm/dl Hct 40.5 (34.1-44.9) % MCV 89.2 (79.4-94.8) fl MCH 28.9 (25.6-32.2) pg MCHC 32.3 (32.2-35.5) g/dl RDW Std Deviation 52.7 H (36.4-46.3) fL Plt Count 257 (182-369) K/mm3 MPV 8.6 L (9.4-12.3) fl Neut % (Auto) (34.0-71.1) % Lymph % (Auto) (19.3-51.7) % [place] % (Auto) (4.7-12.5) % Eos % (Auto) (0.7-5.8) Baso % (Auto) (0.1-1.2) % Neut # (Auto) (1.56-6.13) K/mm3 Lymph # (Auto) (1.18-3.74) K/mm3 [place] # (Auto) (0.24-0.36) K/mm3 Eos # (Auto) (0.04-0.36) K/mm3 Baso # (Auto) (0.01-0.08) K/mm3 PT (9.7-12.0) SECONDS INR APTT (22-31) SECONDS Sodium (136-145) mEq/L Potassium (3.5-5.1) mEq/L Chloride (98-107) mEq/L Carbon Dioxide (21-32) mEq/L Anion Gap (5-15) BUN (7-18) mg/dL Creatinine (0.55-1.02) mg/dL Est Cr Clr Drug Dosing mL/min Estimated GFR (MDRD) (>60) mL/min BUN/Creatinine Ratio (14-18) Glucose (74-106) mg/dL POC Glucose 82 (70-105) mg/dL Calcium (8.5-10.1) mg/dL Total Bilirubin (0.2-1.0) mg/dL AST (15-37) U/L ALT (14-59) U/L Alkaline Phosphatase (46-116) U/L Total Protein (6.4-8.2) g/dl Albumin (3.4-5.0) g/dl Globulin gm/dL Albumin/Globulin Ratio (1-2) Urine Color (Yellow) Urine Appearance (Clear) Urine pH (5.0-8.0) Ur Specific [place] (1.005-1.030) Urine Protein (Negative) Urine Glucose (UA) (Negative) Urine Ketones (Negative) Urine Occult Blood (Negative) Urine Nitrite (Negative) Urine Bilirubin (Negative) Urine Urobilinogen (0.2-1.0) Ur Leukocyte Esterase (Negative) Urine RBC (0-5) /hpf Urine WBC (0-5) /hpf Ur Squamous Epith Cells (0-5) /hpf Urine Bacteria (FEW) /hpf Urine Mucus (FEW) /hpf Blood Type Gel Antibody Screen Crossmatch Med Orders - Current: Current Medications Ampicillin Sodium 2 gm/ Sodium (Chloride) 100 mls @ 200 mls/hr IV Q6H [facility] Last Admin: 06/02/19 08:18 Dose: 200 mls/hr Clindamycin Phosphate 900 mg/ (Sodium Chloride) 106 mls @ 200 mls/hr IV Q8H [facility] Last Admin: 06/02/19 06:24 Dose: 200 mls/hr Levothyroxine Sodium (Synthroid) 50 mcg PO ACBREAKFAST [facility] Last Admin: 06/02/19 06:25 Dose: 50 mcg Lisinopril (Prinivil) 10 mg PO DAILY [facility] Last Admin: 06/02/19 08:52 Dose: 10 mg Ondansetron HCl (Zofran) 4 mg IVPUSH Q4H PRN PRN Reason: Nausea/Vomiting Oxycodone/Acetaminophen (Percocet 325-5 Mg) 2 tab PO Q4H PRN PRN Reason: Pain (severe 7-10) Last Admin: 06/02/19 06:30 Dose: 2 tab Discontinued Medications Carbidopa/Levodopa (Sinemet 25-100 Mg) 1 tab PO ONETIME ONE Stop: 06/01/19 20:30 Last Admin: 06/01/19 22:42 Dose: 1 tab Ephedrine Sulfate (Ephedrine In Ns) Confirm Administered Dose 25 mg .ROUTE .STK- MED ONE Stop: 06/01/19 18:02 Fentanyl (Sublimaze) 100 mcg IVPUSH ONETIME ONE Stop: 06/01/19 15:48 Last Admin: 06/01/19 16:13 Dose: 100 mcg Fentanyl (Sublimaze) Confirm Administered Dose 100 mcg .ROUTE .STK-MED ONE Stop: 06/01/19 17:00 Fentanyl (Sublimaze) Confirm Administered Dose 100 mcg .ROUTE .STK-MED ONE Stop: 06/01/19 17:57 Fentanyl (Sublimaze) 50 mcg IVPUSH Q5M PRN PRN Reason: Pain Hydromorphone HCl (Dilaudid) 0.5 mg IVPUSH Q10M PRN PRN Reason: Pain (severe 7-10) Sodium Chloride (Normal Saline) 1,000 mls @ 999 mls/hr IV ASDIRECTED [facility] Last Admin: 06/01/19 16:15 Dose: 999 mls/hr Lidocaine HCl (Xylocaine-Mpf 1%) Confirm Administered Dose 4 mls @ as directed .ROUTE .STK-MED ONE Stop: 06/01/19 17:00 Cefazolin Sodium/Dextrose 2 gm (/ Premix) 50 mls @ 100 mls/hr IV ONETIME ONE Stop: 06/01/19 17:38 Last Admin: 06/01/19 17:15 Dose: 100 mls/hr Gentamicin Sulfate 485 mg/ (Sodium Chloride) 112.125 mls @ 200 mls/hr IV ONETIME ONE Stop: 06/01/19 21:03 Last Admin: 06/01/19 22:40 Dose: 200 mls/hr Sodium Chloride (Normal Saline) Confirm Administered Dose 100 mls @ as directed .ROUTE .STK-MED ONE Stop: 06/01/19 21:38 Last Admin: 06/01/19 22:00 Dose: 200 mls/hr Sodium Chloride (Normal Saline) Confirm Administered Dose 100 mls @ as directed .ROUTE .STK-MED ONE Stop: 06/02/19 06:11 Last Admin: 06/02/19 07:59 Dose: Not Given Iopamidol (Isovue-300 (61%)) 100 ml IVPUSH ONETIME ONE Stop: 06/01/19 16:15 Last Admin: 06/01/19 16:25 Dose: 100 ml Metoclopramide HCl (Reglan) 10 mg IVPUSH ONETIME ONE Stop: 06/01/19 15:49 Last Admin: 06/01/19 16:11 Dose: 10 mg Ondansetron HCl (Zofran) Confirm Administered Dose 4 mg .ROUTE .STK-MED ONE Stop: 06/01/19 17:43 Ondansetron HCl (Zofran) 4 mg IVPUSH ONETIME PRN PRN Reason: Nausea/Vomiting Propofol (Diprivan 20 Ml) Confirm Administered Dose 200 mg .ROUTE .STK-MED ONE Stop: 06/01/19 17:00 Rocuronium Black (Zemuron) Confirm Administered Dose 100 mg .ROUTE .STK-MED ONE Stop: 06/01/19 17:00 Sodium Chloride (Saline Flush) 10 ml FLUSH ONETIME ONE Stop: 06/01/19 16:15 Last Admin: 06/01/19 16:10 Dose: 10 ml Sodium Chloride (Saline Flush) 10 ml FLUSH ASDIRECTED PRN PRN Reason: Keep Vein Open Succinylcholine Chloride (Succinylcholine In Ns Pf) Confirm Administered Dose 100 mg .ROUTE .STK-MED ONE Stop: 06/01/19 17:00 - Exam General: Alert, Oriented, Cooperative Lungs: Clear to Auscultation, Normal Respiratory Effort Cardiovascular: Regular Rate, Regular Rhythm GI/Abdominal Exam: Soft, Tender (minimal, bilateral lower quadrants ) Extremities: Normal Inspection - Problem List & Annotations (1) Vaginal bleeding SNOMED Code(s): 891663948, 949088120 Code(s): N93.9 - ABNORMAL UTERINE AND VAGINAL BLEEDING, UNSPECIFIED Status : Acute Current Visit: Yes - Problem List Review Problem List Initiated/Reviewed/Updated: Yes - My Orders Last 24 Hours: Active Orders 24 hr Category Date Time Status Antiembolic Devices [RC] PER UNIT ROUTINE Care 06/01/19 19:51 Active Blood Glucose Check, Bedside [RC] ONETIME Care 06/02/19 05:00 Active Notify Provider Consults [RC] ASDIRECTED Care 06/01/19 18:56 Inactive Oxygen Therapy [RC] ASDIRECTED Care 06/01/19 17:58 Active Peripheral IV Care [RC] . DIRECTED Care 06/01/19 17:10 Inactive Pulse Oximetry [RC] ASDIRECTED Care 06/01/19 17:58 Active RT Incentive Spirometry [RC] Q2HWA Care 06/01/19 19:51 Active Ready for Discharge [RC] PER UNIT ROUTINE Care 06/02/19 09:40 Ordered Up ad Grace [RC] PER UNIT ROUTINE Care 06/01/19 19:51 Active Vital Signs [RC] Q4HR Care 06/01/19 19:51 Active Consult to Physician [CONS] Stat Cons 06/01/19 18:55 Active Regular Diet [DIET] Diet 06/02/19 Breakfast Active PACKED CELLS [RED BLOOD CELLS LP] [BBK] Stat Lab 06/01/19 15:55 Results TYPE AND SCREEN [BBK] Stat Lab 06/01/19 15:55 Results Acetaminophen/oxyCODONE [Percocet 325-5 MG] Med 06/01/19 19:51 Active 2 tab PO Q4H PRN Ampicillin 2 gm Med 06/01/19 20:15 Active Sodium Chloride 0.9% [Normal Saline] 100 ml IV Q6H Clindamycin Phosphate [Cleocin] 900 mg Med 06/01/19 21:30 Active Sodium Chloride 0.9% [Normal Saline] 100 ml IV Q8H Levothyroxine [Synthroid] Med 06/02/19 06:00 Active 50 mcg PO ACBREAKFAST Lisinopril [Prinivil] Med 06/02/19 09:00 Active 10 mg PO DAILY Ondansetron [Zofran] Med 06/01/19 19:51 Active 4 mg IVPUSH Q4H PRN Sequential Compression Device [OM.PC] Per Unit Routine Oth 06/01/19 19:51 Ordered Resuscitation Status Routine Resus Stat 06/01/19 19:02 Ordered Medication Orders Ampicillin Sodium 2 gm/ Sodium (Chloride) 100 mls @ 200 mls/hr IV Q6H [facility] Last Admin: 06/02/19 08:18 Dose: 200 mls/hr Infusion: 06/02/19 02:59 Dose: 200 mls/hr Admin: 06/02/19 02:29 Dose: 200 mls/hr Infusion: 06/01/19 21:57 Dose: 200 mls/hr Infusion: 06/01/19 21:30 Dose: 200 mls/hr Admin: 06/01/19 21:16 Dose: 50 mls/hr Clindamycin Phosphate 900 mg/ (Sodium Chloride) 106 mls @ 200 mls/hr IV Q8H [facility] Last Admin: 06/02/19 06:24 Dose: 200 mls/hr Infusion: 06/01/19 22:37 Dose: 200 mls/hr Admin: 06/01/19 22:05 Dose: 200 mls/hr Levothyroxine Sodium (Synthroid) 50 mcg PO ACBREAKFAST [facility] Last Admin: 06/02/19 06:25 Dose: 50 mcg Lisinopril (Prinivil) 10 mg PO DAILY [facility] Last Admin: 06/02/19 08:52 Dose: 10 mg Ondansetron HCl (Zofran) 4 mg IVPUSH Q4H PRN PRN Reason: Nausea/Vomiting Oxycodone/Acetaminophen (Percocet 325-5 Mg) 2 tab PO Q4H PRN PRN Reason: Pain (severe 7-10) Last Admin: 06/02/19 06:30 Dose: 2 tab Admin: 06/02/19 00:32 Dose: 2 tab Admin: 06/01/19 20:17 Dose: 2 tab - Assessment Assessment (Free Text/Narrative):: POD#1 from repair of disruption of vaginal epithelium / vaginal cuff. - Plan Plan (Free Text/Narrative):: * Patient with minimal drop in Hb. No further monitoring needed * Never febrile and with normal WBC this AM. Was given Amp, Gent, Clinda after surgery. Will discontinue at 24 hours post op * Strict pelvic rest and no lifting over 15 lbs * Percocet for pain * Follow up with Dr. Marcus in 1-2 weeks
[2019-06-02] MEDS ORDERED: Clindamycin Phosphate 900 MG in Sodium Chloride 0.9% 100 ML IV SCH ×2 (13:27→13:30)
--- NOTE | 2019-06-02 14:54 | PCM48HPAN ---
Post Anesthesia Note - EVALUATION WITHIN 48HRS OF ANESTHETIC Vital Signs in Normal Range: Yes Patient Participated in Evaluation: Yes Respiratory Function Stable: Yes (Patient instructed to ambulate regularly upon discharge) Airway Patent: Yes Cardiovascular Function Stable: Yes Hydration Status Stable: Yes Pain Control Satisfactory: Yes Nausea and Vomiting Control Satisfactory: Yes Mental Status Recovered: Yes Vital Signs: Last Vital Signs Temp 36.8 C 06/02/19 08:52 Pulse 71 06/02/19 08:52 Resp 20 06/02/19 08:52 BP 125/92 H 06/02/19 08:52 Pulse Ox 97 06/02/19 10:00 - COMMENTS/OBSERVATIONS Free Text/Narrative:: Patient having mild LLQ discomfort but not requiring additional pain relief. Due for discharge today after antibiotics are administered. Had discussion with patient about frequent ambulation and IS use now and at home. Patient verbalizes understanding. No concerns at this time.
== END 2019-06-02 15:35 | disposition home or self-care (01) | DRG 761 ==
LOC: SUPCPDRO 15:07 → JD.ED 15:07 → JD.SDS 17:08 → JD.OB 19:10
PROVIDERS: ADMIT Obstetrics & Gynecology; ATTEND Obstetrics & Gynecology
PROC: 0UQG7ZZ Repair Vagina, Via Natural or Artificial Opening (ICD-10-PCS; principal; 2019-06-01)
DX: N89.8 Other specified noninflammatory disorders of vagina (principal); N93.9 Abnormal uterine and vaginal bleeding, unspecified; I10 Essential (primary) hypertension; G47.30 Sleep apnea, unspecified; G43.909 Migraine, unspecified, not intractable, without status migrainosus; F41.9 Anxiety disorder, unspecified; F32.9 Major depressive disorder, single episode, unspecified; E11.9 Type 2 diabetes mellitus without complications; E03.9 Hypothyroidism, unspecified; E66.9 Obesity, unspecified; Z90.89 Acquired absence of other organs; Z90.49 Acquired absence of other specified parts of digestive tract; Z98.51 Tubal ligation status; Z79.84 Long term (current) use of oral hypoglycemic drugs; I25.2 Old myocardial infarction; Z79.890 Hormone replacement therapy; Z79.899 Other long term (current) drug therapy; Z88.0 Allergy status to penicillin; Z90.710 Acquired absence of both cervix and uterus; Z68.37 Body mass index [BMI] 37.0-37.9, adult
CPT/HCPCS: 00942; 36415; 74177; 74177-26; 80053; 81001; 82962; 85025; 85027; 85610; 85730; 86850; 86900; 86901; 86922; 93005; 93010; 96361; 96374; 96375; 99285; 99285-25; A9270-GY; J0290; J0330; J0690; J1580; J2001; J2405; J2704; J2765; J3010; J3490; J7030; J7050; Q9963; Q9967

== ENCOUNTER → 2020-01-09 | Day surgery (SDC) | payer MEDICAID ==
[~2020-01-09] MED LIST: Dexamethasone 4 MG/ML 5 ML MDV ONE; EPINEPHrine 1 MG/ML 30 ML MDV IRR SCH; Lactated Ringers 1,000 ML IV SCH; Lidocaine 1% 0 ML ONE; Lidocaine 1%/Sod Bicarbonate in NS 8.4% 1 ML Syringe IDERM PRN; Lidocaine 2% with EPINEPHrine 1:200,000 20 ML SDV ONE; Midazolam 1 MG/ML 2 ML SDV ONE; Ondansetron 4 MG/2 ML SDV ONE; Propofol 200 MG/20 ML SDV ONE; Ropivacaine 0.5% 5 MG/ML 30 ML SDV ONE; Scopolamine 1.5 MG Transdermal Patch TRDERM PRN; Sodium Chloride 0.9% 10 ML Syringe FLUSH PRN; ceFAZolin 1 GM Vial ONE; cloNIDine 1,000 MCG/10 ML SDV ONE; fentaNYL 100 MCG/2 ML SDV ONE
== END | disposition home or self-care (01) ==
LOC: JD.SDS 07:35
PROVIDERS: ATTEND Orthopaedic Surgery
DX: M75.101 Unspecified rotator cuff tear or rupture of right shoulder, not specified as traumatic (principal); Z53.09 Procedure and treatment not carried out because of other contraindication
CPT/HCPCS: 87641; J2795; J0690; J0735; J1100; J2001; J2250; J2405; J2704; J3010